=== PATIENT | female | born 1995 | race Caucasian/White ===

== ENCOUNTER 2020-12-21 08:55 | Emergency (ER) | payer OTHER, SELFPAY ==
--- NOTE | ~2020-12-21 | US_ITS ---
EXAMINATION: US OB follow up DATE: 12/21/2020 10:33 INDICATION: Pelvic pain, irregular menses TECHNIQUE: Real-time ultrasound of the pelvis was performed. The interpreting radiologist was not pre sent for the study. COMPARISON: None. FINDINGS: There is a single living fetus in transverse lie. The placenta is fundal. There is a 1.4 cm hypoechoic area of the placenta without internal vascularity, possibly venous sheppard or hematoma. Feta l cardiac activity and movement are noted. heart rate is 157 beats per minute (bpm). The amniotic fluid index is subjectively normal. The left ovary measures 2.9 x 2.1 cm. There is normal va scular flow in the left ovary. The right ovary is not visualized however no right adnexal abnormality is seen. The following biometric data were obtained: Biparietal diameter (BPD): 4.0 cm; head circumference (HC): 14.8 cm; abdominal circumference (AC): 12 .7 cm; femur length (FL): 2.4 cm. These measurements are concordant. Estimated weight is 212 g +/- 31 g. As single measurements, these parameters are each equal to the following estimated gestational ages w ith ranges of +/- 2 standard deviations: BPD: 18 weeks 3 days ( 1 weeks 5 days). HC: 18 weeks 0 days ( 1 weeks 1 days). AC: 18 weeks 2 days ( 2 weeks 0 days). FL: 17 weeks 2 days ( 1 weeks 3 days). estimated gestational age based solely on measurements from this exam is 18 weeks 0 days +/- 1 weeks 2 days. IMPRESSION: 1. Single living fetus in transverse lie. 2. estimated gestational age based solely on measurements from this exam is 18 weeks 0 days +/- 1 weeks 2 days with an estimated delivery date of 05/24/2021. Reviewed, dictated and finalized at location B. IMPRESSION: 1. Single living fetus in transverse lie. 2. estimated gestational age based solely on measurements from this exam is 18 weeks 0 days +/- 1 weeks 2 days with an estimated delivery date of 2020.
[2020-12-21 09:30] VITALS: BP 143/100; PULSE 100; RESP 20; TEMP 36.6; O2SAT 100
[2020-12-21] MEDS: ACETAMINOPHEN 325 MG TABLET 650 MG PO (09:41)
[2020-12-21] MEDS: ONDANSETRON HCL ODT 4 MG TABLET PO (09:42)
[2020-12-21 09:46] LABS: Basophils Absolute Auto 0.06 K/mm3 (0.00-0.10); Basophils Percent Auto 0.4 % (0.0-1.0); Eosinophils Absolute Auto 0.55 K/mm3 (0.02-0.50); Eosinophils Percent Auto 3.5 % (1.0-6.0); Hematocrit 33.7 % (35.0-49.0); Hemoglobin 11.5 g/dL (12.0-15.0); Immature Granulocyte Absolute 0.08 K/mm3 (0.00-0.00); Immature Granulocyte Percent A 0.5 % (0.0-0.0); Lymphocytes Absolute Auto 2.71 K/mm3 (1.10-4.50); Lymphocytes Percent Auto 17.3 % (18.0-42.0); Mean Corpuscular HGB Conc 34.1 g/dL (32.0-36.0); Mean Corpuscular Hemoglobin 30.2 pg (27.0-31.0); Mean Corpuscular Volume 88.5 fL (78.0-102.0); Mean Platelet Volume 10.4 fl (9.2-11.8); Monocytes Absolute Auto 1.12 K/mm3 (0.10-0.90); Monocytes Percent Auto 7.1 % (2.0-11.0); Neutrophils Absolute Auto 11.2 K/mm3 (1.7-7.2); Neutrophils Percent Auto 71.2 % (50.0-70.0); Platelet Count Result 258 K/mm3 (150-420); Red Blood Count 3.81 M/mm3 (4.20-5.40); Red Cell Distribution Width 12.8 % (11.6-14.4); White Blood Count 15.7 K/mm3 (4.8-10.8)
[2020-12-21 09:47] LABS: Appearance Urine Cloudy (Clear); Bilirubin Urine Negative (Negative); Color Urine Light Yellow (Yellow); Glucose Urine UA Negative (Negative); Ketones Urine Negative (Negative); Leukocyte Esterase Ur 1+ LEU/UL (Negative); Nitrate Urine Positive (Negative); Protein Urine Negative (Negative); Urobilinogen Urine 0.2 mg/dL (0.2-1.0)
[2020-12-21 09:55] LABS: Add Urine Microscopic? YES; Bacteria Urine 4+ /hpf; Blood Urine Trace-lysed (Negative); Squamous Epithelial Cell Urine Moderate /hpf (Few); WBC Urine 51-75 /hpf (0-3)
[2020-12-21 09:56] LABS: Pregnancy On Board Control Positive; Urine Pregnancy Test Positive
[2020-12-21 10:05] LABS: Alanine Aminotransferase 20 U/L (14-59); Albumin Level 3.2 g/dL (3.4-5.0); Alkaline Phosphatase 37 U/L (46-116); Anion Gap 11 mmol/L (8-16); Aspartate Amino Transferase 14 U/L (15-37); Bilirubin,Total 0.3 mg/dL (0.00-1.00); Blood Urea Nitrogen 7 mg/dL (7-18); Calcium 8.4 mg/dL (8.5-10.1); Carbon Dioxide 25 mmol/L (21-32); Chloride 103 mmol/L (98-108); Estimated CRCL calculation 105 ml/min; Estimated Glomerular Filt Rate > 60; Glucose 53 mg/dL (70-99); Lipase 56 U/L (73-393); Osmolality Calculated 283 mOsm/kg (285-295); Potassium 2.9 mmol/L (3.5-5.1); Sodium 139 mmol/L (136-145); Total Protein 6.5 g/dL (6.4-8.2)
[2020-12-21] MEDS: POTASSIUM CHLORIDE 20 MEQ TABLET 40 MEQ PO (10:40)
[2020-12-21] MEDS: SODIUM CHLORIDE 0.9% IV 1,000 ML 999 ML IV CONT (10:52)
[2020-12-21] MEDS: KCL 20 MEQ/SW 100 ML 100 ML 50 MEQ IVPB (10:52)
--- NOTE | 2020-12-21 11:55 | PC.NURSE ---
HIV testing offered, mom declined, refusal signed.
--- NOTE | 2020-12-21 12:57 | ED.ABDPAIN ---
HPI - Abdominal Pain General Chief Complaint: Abdominal Pain Stated Complaint: ABD PAIN Time Seen by Provider: 12/21/20 09:32 Source: patient and RN notes reviewed Mode of arrival: ambulatory Limitations: no limitations History of Present Illness MD elicited complaint: abdominal pain and other (Pt may be ) Onset (ago): day(s) (1) Pain Consistency: colicky Location: suprapubic Severity: mild Pain scale (0-10): 3 Quality: cramping and dull Radiation: none Migration to: no migration Exacerbating factors: nothing Relieving factors: nothing Associated symptoms: nausea Related Data Patient : Yes Allergies Allergy/AdvReac Type Severity Reaction Status Date / Time nickel Allergy Mild rash Verified 11/16/18 11:02 Review of Systems Review of Systems: All systems reviewed & are unremarkable except as noted in HPI and below Constitutional: Constitutional: Reports as per HPI and Reports no additional constitutional complaints Eyes: Eyes: Reports as per HPI and Reports no additional eye complaints ENT: Reports system reviewed and no additional complaints, except as documented and Reports as per HPI Cardiovascular: Cardiovascular: Reports as per HPI and Reports no additional cardiovascular complaints Respiratory: Respiratory: Reports as per HPI and Reports no additional respiratory complaints Gastrointestinal: Gastrointestinal: Reports as per HPI, Reports no additional gastrointestinal complaints, Reports abdominal pain and Reports nausea Genitourinary: Genitourinary: Reports no additional female genitourinary complaints, Reports as per HPI and Reports nocturia Musculoskeletal: Musculoskeletal: Reports no additional musculoskeletal complaints and Reports as per HPI Integumentary/Breasts: Skin/Breast: Reports system reviewed and no additional complaints, except as docu and Reports as per HPI Neurologic: Reports system reviewed and no additional complaints, except as documented and Reports as per HPI Psychiatric: Psychiatric: Reports no additional psychiatric complaints and Reports as per HPI Endocrine: Endocrine: Reports no additional endocrine complaints and Reports as per HPI Hematologic/Lymphatic: Hematologic/Lymphatic: Reports no additional hematologic/lymphatic complaints and Reports as per HPI Allergic/Immunologic: Allergic/Immunologic: Reports no additional allergic/immunologic complaints and Reports as per HPI PMFSH Past Medical History Medical History Hypokalemia Exam Const: General: healthy appearing, no acute distress and alert Nutritional Appearance: well nourished Orientation/consciousness: patient oriented x3 Limitations: no limitations HENMT: Head: normal to inspection Ears: external ears normal and TM's normal bilaterally General nose exam: Normal external nose present and Normal nares present Mouth: Yes lip normal and Yes moist mucous membranes Teeth and gingiva: dentition normal Eyes: Conjunctivae: conjunctivae normal Pupils: Equal, round and reactive pupils present EOM: EOMs intact bilaterally Neck: Neck: normal visual inspection and no lymphadenopathy Chest: Chest palpation & inspection: normal inspection of the chest Resp: Effort & Inspection: normal respiratory effort Auscultation: clear to auscultation bilaterally Cardio: Rate: regular rate Rhythm: regular rhythm GI: GI Palp: Yes Soft to palpation Percussion: Yes normal to percussion Auscultation: normal bowel sounds Other: no acute tenderness, gravid uterus 20 weeks size? : General: Yes bladder normal to palpation and Yes no CVA tenderness Back/Spine/Pelvis: Back: no CVA tenderness Skin: General skin exam: normal color Rashes: no rashes Neuro: General: patient oriented x3, moves all extremities and no focal motor deficits Extrem: General: normal to inspection and no pedal edema Psych: Appearance: grossly normal and well kempt Mental St
[2020-12-21 13:18] VITALS: BP 120/74; PULSE 89; RESP 20; TEMP 36.6; O2SAT 100
== END 2020-12-21 13:24 | disposition home or self-care (01) ==
PROVIDERS: Emergency Provider Emergency Medicine
DX: E87.6 Hypokalemia (principal); Z3A.18 18 weeks gestation of pregnancy; N30.00 Acute cystitis without hematuria
CPT/HCPCS: 36415; 76816; 80053; 81001; 81025; 83690; 84702; 85025; 87077; 87086; 87088; 87186; 96365; 96366; 96367; 99283; 99284; A9270; J0696; J3480; J7030

== ENCOUNTER 2021-01-20 09:06 | Outpatient (CLI) | payer OTHER, SELFPAY ==
[2021-01-20 09:54] LABS: Alanine Aminotransferase 20 U/L (14-59); Albumin Level 3.1 g/dL (3.4-5.0); Alkaline Phosphatase 48 U/L (46-116); Anion Gap 14 mmol/L (8-16); Aspartate Amino Transferase 12 U/L (15-37); Bilirubin,Total 0.2 mg/dL (0.00-1.00); Blood Urea Nitrogen 6 mg/dL (7-18); Calcium 9.2 mg/dL (8.5-10.1); Carbon Dioxide 24 mmol/L (21-32); Chloride 104 mmol/L (98-108); Estimated Glomerular Filt Rate > 60; Glucose 106 mg/dL (70-99); Lactate Dehydrogenase 143 U/L (81-234); Osmolality Calculated 291 mOsm/kg (285-295); Potassium 3.2 mmol/L (3.5-5.1); Sodium 142 mmol/L (136-145); Total Protein 6.8 g/dL (6.4-8.2); Uric Acid 2.4 mg/dL (2.6-6.0)
[2021-01-20 10:35] LABS: HIV 1 P24 AG Negative (Negative); HIV 1/2 AB Negative (Negative)
[2021-01-20 10:47] LABS: Thyroid Stimulating Hormone 1.45 uIU/mL (0.36-3.74)
[2021-01-23 12:48] LABS: Vitamin D 25 Hydroxy 22 ng/mL (30-100)
[2021-01-24 11:38] LABS: RPR Screen Non-Reactive (Non-Reactive)
[2021-01-25 03:33] LABS: Hepatitis B Surface Antigen Nonreactive (Nonreactive); Hepatitis C Signal to Cutoff 0.01 ratio (<1.00); Hepatitis C Virus Antibody Nonreactive (Nonreactive)
[2021-01-25 17:59] LABS: Hematocrit 34.1 % (35.0-45.0); MCH 30.7 pg (27.0-33.0); MCV 95.4 fL (80.0-100.0); RDW 14.2 % (11.0-15.0); Red Blood Cell Count 3.57 Mill/uL (3.80-5.10)
[2021-01-25 18:52] LABS: Rubella IgG Antibody 1.16 Index
== END 2021-01-20 09:07 | disposition home or self-care (01) ==
LOC: CHSLAB 09:08
PROVIDERS: PCP Student in an Organized Health Care Education/Training Program; Visit Provider Student in an Organized Health Care Education/Training Program
DX: Z34.90 Encounter for supervision of normal pregnancy, unspecified, unspecified trimester (principal); I10 Essential (primary) hypertension
CPT/HCPCS: 36415; 80053; 82306; 83021; 83615; 84443; 84550; 86592; 86703; 86762; 86787; 86850; 86900; 86901

== ENCOUNTER 2021-02-02 20:31 | Emergency (ER) | payer OTHER, SELFPAY ==
[2021-02-02 20:45] VITALS: BP 130/76; PULSE 107; RESP 18; TEMP 36.8; O2SAT 99
--- NOTE | 2021-02-02 21:00 | PC.NURSE ---
HIV refusal signed per mom, reports having done at OB Dr office.
--- NOTE | 2021-02-02 21:00 | ED.GENADULT ---
HPI - General Adult General Chief complaint: Unspecified Stated complaint: body pain Source: patient Mode of arrival: ambulatory Limitations: no limitations History of Present Illness HPI narrative: Danae is a 25F with a PMH of hypertension, history of nicotine dependence that is 5 months that presented to the ED with body aches and chills. This morning she started having aches in her low back that then went down her legs and to her whole body. She then had chills and has a lot of fatigue. She denies CP, SOB, nausea, vomiting, diarrhea and dysuria. Related Data Home Medications Medication Instructions Recorded Confirmed docosahexaenoic acid 200 mg capsule 200 mg PO DAILY 12/30/20 02/02/21 Allergies Allergy/AdvReac Type Severity Reaction Status Date / Time nickel Allergy Mild rash, hives Verified 01/20/21 11:46 Review of Systems Constitutional: Constitutional: Reports body ache(s), Reports chills and Reports malaise Eyes: Eyes: Reports no additional eye complaints ENT: Reports system reviewed and no additional complaints, except as documented Cardiovascular: Cardiovascular: Reports no additional cardiovascular complaints Respiratory: Respiratory: Reports no additional respiratory complaints Gastrointestinal: Gastrointestinal: Reports no additional gastrointestinal complaints Genitourinary: Genitourinary: Reports no additional female genitourinary complaints Musculoskeletal: Musculoskeletal: Reports as per HPI Integumentary/Breasts: Skin/Breast: Reports system reviewed and no additional complaints, except as docu Neurologic: Reports system reviewed and no additional complaints, except as documented Psychiatric: Psychiatric: Reports no additional psychiatric complaints Endocrine: Endocrine: Reports no additional endocrine complaints Hematologic/Lymphatic: Hematologic/Lymphatic: Reports no additional hematologic/lymphatic complaints Allergic/Immunologic: Allergic/Immunologic: Reports no additional allergic/immunologic complaints COUNTS INCLUDE 234 BEDS AT THE [facility] Past Medical History Medical History Hypokalemia Surgical History Surgical History History of appendectomy History of placement of ear tubes Previous section x1 Family History Family History Father Alcoholism Mother COPD (chronic obstructive pulmonary disease) Hypertension Depression Anxiety Grandparent Lymphoma Hypertension Anxiety Depression Cerebrovascular accident Social History Social History (Reviewed 09/01/21 @ 21:04 by CHARO Smith Smoking status: Current every day smoker Tobacco type: cigarettes Alcohol intake: former Substance use: never Exam Const: General: cooperative, healthy appearing, comfortable and no acute distress HENMT: Head: normal to inspection, normocephalic and atraumatic Eyes: General: appearance normal, both eyes and all related structures Neck: Neck: normal visual inspection Chest: Chest palpation & inspection: normal inspection of the chest Resp: Effort & Inspection: normal respiratory effort and able to speak in complete sentences Auscultation: clear to auscultation bilaterally Cardio: Rate: regular rate Rhythm: regular rhythm GI: Inspection: normal to inspection GI Palp: No abdominal tenderness Auscultation: normal bowel sounds Skin: General skin exam: normal color and no rashes or lesions noted Neuro: General: oriented to person, oriented to place and oriented to time Extrem: General: normal to inspection Psych: Appearance: grossly normal Mental Status: mental status grossly normal Speech and movement: Normal speech and movement present Affect: normal affect Attitude: cooperative Thought process: Normal thought process present Course Course Emergency Course: Her labs showed anemia wi
[2021-02-02 21:13] LABS: Basophils Absolute Auto 0.04 K/mm3 (0.00-0.10); Basophils Percent Auto 0.3 % (0.0-1.0); Eosinophils Absolute Auto 0.19 K/mm3 (0.02-0.50); Eosinophils Percent Auto 1.3 % (1.0-6.0); Hematocrit 27.1 % (35.0-49.0); Hemoglobin 9.5 g/dL (12.0-15.0); Immature Granulocyte Absolute 0.19 K/mm3 (0.00-0.00); Immature Granulocyte Percent A 1.3 % (0.0-0.0); Lymphocytes Absolute Auto 0.86 K/mm3 (1.10-4.50); Mean Corpuscular HGB Conc 35.1 g/dL (32.0-36.0); Mean Corpuscular Hemoglobin 31.1 pg (27.0-31.0); Mean Corpuscular Volume 88.9 fL (78.0-102.0); Mean Platelet Volume 10.5 fl (9.2-11.8); Monocytes Absolute Auto 1.12 K/mm3 (0.10-0.90); Monocytes Percent Auto 7.8 % (2.0-11.0); Neutrophils Absolute Auto 11.9 K/mm3 (1.7-7.2); Neutrophils Percent Auto 83.3 % (50.0-70.0); Platelet Count Result 210 K/mm3 (150-420); Red Blood Count 3.05 M/mm3 (4.20-5.40); Red Cell Distribution Width 13.2 % (11.6-14.4); White Blood Count 14.3 K/mm3 (4.8-10.8)
[2021-02-02 21:17] LABS: Appearance Urine Clear (Clear); Bilirubin Urine Negative (Negative); Color Urine Light Yellow (Yellow); Glucose Urine UA Negative (Negative); Ketones Urine 2+ (Negative); Leukocyte Esterase Ur Negative (Negative); Nitrate Urine Negative (Negative); Protein Urine Negative (Negative); Urobilinogen Urine 0.2 mg/dL (0.2-1.0)
[2021-02-02 21:23] LABS: Add Urine Microscopic? YES; Bacteria Urine 1+ /hpf; Blood Urine Trace-Intact (Negative); RBC Urine 0-2 /hpf (0-2); Squamous Epithelial Cell Urine Moderate /hpf (Few); WBC Urine 0-3 /hpf (0-3)
[2021-02-02 21:29] LABS: Alanine Aminotransferase 23 U/L (14-59); Albumin Level 2.8 g/dL (3.4-5.0); Alkaline Phosphatase 44 U/L (46-116); Anion Gap 8 mmol/L (8-16); Aspartate Amino Transferase 18 U/L (15-37); Bilirubin,Total 0.2 mg/dL (0.00-1.00); Blood Urea Nitrogen 3 mg/dL (7-18); Calcium 7.7 mg/dL (8.5-10.1); Carbon Dioxide 25 mmol/L (21-32); Chloride 101 mmol/L (98-108); Estimated CRCL calculation 152 ml/min; Estimated Glomerular Filt Rate > 60; Glucose 90 mg/dL (70-99); Osmolality Calculated 274 mOsm/kg (285-295); Potassium 2.9 mmol/L (3.5-5.1); Sodium 134 mmol/L (136-145); Total Protein 6.3 g/dL (6.4-8.2)
[2021-02-02 21:33] LABS: Influenza Control Valid (Valid); SARS-CoV-2 Ag Positive (Negative)
[2021-02-02 22:26] VITALS: BP 122/75; PULSE 100; RESP 20; TEMP 37; O2SAT 99
[2021-02-02] MEDS: POTASSIUM CHLORIDE 20 MEQ TABLET 40 MEQ PO (22:26)
== END 2021-02-02 22:34 | disposition home or self-care (01) ==
PROVIDERS: Emergency Provider Family Medicine; PCP Student in an Organized Health Care Education/Training Program
DX: O98.512 Other viral diseases complicating pregnancy, second trimester (principal); U07.1 COVID-19; E87.6 Hypokalemia; D64.9 Anemia, unspecified; F17.200 Nicotine dependence, unspecified, uncomplicated
CPT/HCPCS: 80053; 81001; 85025; 87426; 87804; 99282; 99283; A9270; C9803

== ENCOUNTER 2021-03-21 09:11 | Outpatient (CLI) | payer OTHER, SELFPAY ==
[2021-03-21 10:47] LABS: Hematocrit 31.7 % (35.0-49.0); Mean Corpuscular HGB Conc 34.7 g/dL (32.0-36.0); Mean Corpuscular Hemoglobin 31.3 pg (27.0-31.0); Mean Corpuscular Volume 90.3 fL (78.0-102.0); Mean Platelet Volume 10.9 fl (9.2-11.8); Platelet Count Result 349 K/mm3 (150-420); Red Blood Count 3.51 M/mm3 (4.20-5.40); Red Cell Distribution Width 13.3 % (11.6-14.4)
[2021-03-21 10:59] LABS: White Blood Count 22.9 K/mm3 (4.8-10.8)
[2021-03-21 11:12] LABS: Band Neutrophils Percent 1 % (0-6); Eosinophils Absolute Manual 0.45 K/mm3 (0.02-0.5); Eosinophils Percent Manual 2 % (1-6); Lymphocytes Absolute Manual 3.43 K/mm3 (1.1-4.5); Lymphocytes Percent Manual 15 % (18-44); Monocytes Absolute Manual 2.29 K/mm3 (0.1-0.90); Monocytes Percent Manual 10 % (3-9); Neutrophils Absolute Manual 16.71 K/mm3 (1.7-7.2); Neutrophils Percent Manual 72 % (46-73); Platelet Estimate Adequate (Adequate); Total Cells Counted 100
[2021-03-21 11:23] LABS: Glucose 1 Hour PP 50gm Dose 91 mg/dL (70-130)
[2021-03-21 11:35] LABS: HIV 1 P24 AG Negative (Negative); HIV 1/2 AB Negative (Negative)
[2021-03-23 15:47] LABS: RPR Screen Non-Reactive (Non-Reactive)
== END 2021-03-21 09:12 | disposition home or self-care (01) ==
LOC: CHSLAB 09:13
PROVIDERS: Visit Provider Student in an Organized Health Care Education/Training Program
DX: Z34.90 Encounter for supervision of normal pregnancy, unspecified, unspecified trimester (principal); I10 Essential (primary) hypertension
CPT/HCPCS: 36415; 82947; 85025; 86592; 86703

== ENCOUNTER 2021-05-02 14:46 | Inpatient (IN) | payer OTHER, SELFPAY ==
[2021-05-02] VITALS (55 sets, daily range): BP systolic 117–157; BP diastolic 88–106; PULSE 59–125; RESP 14–28; TEMP 36.2–37.3; O2SAT 94–100; BMI 27.5
--- NOTE | 2021-05-02 14:46 | LDADM ---
This patient, Danae Liu, was admitted to Labor/Delivery/Recovery 120 on 05/02/21 at 14:46. Plans for section, pain management and were discussed with patient. Patient/family oriented to hospital policies and general routines including ID bracelet, bed and alarms, visiting hours, pain management, procedures, bathroom and other care routines, personal items, smoking policy, room service/diet and guest tray routines, security routines, and visiting hours. Patient/Family are encouraged to report perceived risks to care and to ask questions if they do not understand what they are told or what they should do. See OBIX for further documentation.
--- NOTE | 2021-05-02 16:11 | PM.IMHP ---
H&P: HPI History of Present Illness Date/Time: 05/02/21 16:11 Patient is a 25-year-old . LMP uncertain in either August or September 2020. Patient is dated by an US on 12/21/20 at 18w gestation. She is currently 36w6d gestation with an MARIO ALBERTO 05/24/21. Patient was sent from [facility] for nonreassuring heart tracing. Late decelerations were noted on monitoring. Patient has a history of chronic hypertension and has been noncompliant during this with regards to missed office appointments and missed MFM appointments. In light of nonreassuring heart tracing today as well as history of noncompliance, recommendation made to proceed with delivery per [facility]. Fetus in breech presentation today. Patient has a history of C/S x 1 and will be for a repeat section. In general, she reports feeling well today. Denies any headache, chest pain, SOB, N/V, visual disturbances, or RUQ tenderness. Denies any vaginal bleeding or leakage of fluid. Reports occ contractions. Reports good movement. Chief Complaint: IUP at 36w6d gestation Nonreassuring heart tracing Previous C/S x 1 Breech presentation Review of Systems Review of Systems: All systems reviewed & are unremarkable except as noted in HPI and below Constitutional: Constitutional: Reports as per HPI, Reports no additional constitutional complaints, Denies chills, Denies fever(s), Denies headache(s) and Denies night sweats Eyes: Eyes: Reports as per HPI and Reports no additional eye complaints ENT: Reports system reviewed and no additional complaints, except as documented, Reports as per HPI, Reports Normal hearing present and Denies headache(s) Cardiovascular: Cardiovascular: Reports as per HPI, Reports no additional cardiovascular complaints, Denies chest pain and Denies dyspnea Respiratory: Respiratory: Reports as per HPI, Reports no additional respiratory complaints, Denies cough and Denies dyspnea Gastrointestinal: Gastrointestinal: Reports as per HPI, Reports no additional gastrointestinal complaints, Denies abdominal pain, Denies change in bowel habits, Denies change in stool character, Denies nausea and Denies vomiting Genitourinary: Genitourinary: Reports no additional female genitourinary complaints, Reports as per HPI, Denies abnormal vaginal bleeding, Denies genital lesions, Denies hot flashes, Denies dyspareunia, Denies pelvic pain, Denies sexual dysfunction, Denies urinary incontinence, Denies vaginal discharge, Denies vaginal dryness and Denies vaginal odor Musculoskeletal: Musculoskeletal: Reports no additional musculoskeletal complaints and Reports as per HPI Integumentary/Breasts: Skin/Breast: Reports system reviewed and no additional complaints, except as docu, Reports as per HPI, Denies breast pain and Denies nipple discharge Neurologic: Reports system reviewed and no additional complaints, except as documented, Reports as per HPI, Reports Normal hearing present and Denies headache(s) Psychiatric: Psychiatric: Reports no additional psychiatric complaints, Reports as per HPI, Denies anxiety and Denies depression Endocrine: Endocrine: Reports no additional endocrine complaints and Reports as per HPI Hematologic/Lymphatic: Hematologic/Lymphatic: Reports no additional hematologic/lymphatic complaints and Reports as per HPI Allergic/Immunologic: Allergic/Immunologic: Reports no additional allergic/immunologic complaints and Reports as per HPI PMFSH Past Medical History Medical History Chronic hypertension COVID-19 affecting in second trimester Hypokalemia Surgical History Surgical History History of appendectomy History of placement of ear tubes Previous section x1 Family History Family History Father Alcoholism Mother COPD (chronic obstructive pulmonary disease) Hypert
[2021-05-02 16:19] LABS: Basophils Absolute Auto 0.1 K/mm3 (0.0-0.1); Basophils Percent Auto 0.3 % (0.2-1.2); Eosinophils Absolute Auto 0.3 K/mm3 (0-0.3); Eosinophils Percent Auto 1.3 % (0-4.4); Hemoglobin 11.3 g/dL (12.0-15.0); Immature Granulocyte Absolute 0.32 K/mm3 (0.00-0.031); Immature Granulocyte Percent A 1.5 % (0-0.5); Lymphocytes Percent Auto 17.9 % (18.3-44.2); Mean Corpuscular HGB Conc 34.2 g/dl (32-36); Mean Corpuscular Hemoglobin 30.5 pg (26-34); Mean Corpuscular Volume 88.9 fl (80-100); Mean Platelet Volume 11.6 fl (7.4-10.4); Monocytes Percent Auto 9.7 % (2.6-8.5); Neutrophils Absolute Auto 14.3 K/mm3 (1.3-6.7); Neutrophils Percent Auto 69.3 % (45.5-73.1); Nucleated Red Blood Cells Perc 0.1 % (0.0-0.2); Platelet Count Result 333 k/mm3 (150-375); Red Blood Count 3.71 M/mm3 (4.2-5.4); Red Cell Distribution Width 13.3 % (11.5-14.5); White Blood Count 20.7 K/mm3 (4.5-10.0)
[2021-05-02 16:28] LABS: Add Urine Microscopic? YES; Amorphous Sediment Urine Few; Appearance Urine Cloudy (Clear); Bacteria Urine Trace /hpf; Bilirubin Urine Negative (Negative); Blood Urine Negative (Negative); Color Urine Yellow (Yellow); Glucose Urine UA Negative (Negative); Ketones Urine Negative (Negative); Leukocyte Esterase Ur 2+ LEU/UL (NEGATIVE); Nitrate Urine Negative (Negative); Protein Urine Negative (Negative); RBC Urine 0-2 /hpf (0-2); Specific Grav Ur 1.006 (1.001-1.035); Squamous Epithelial Cell Urine Many /hpf (Few); Urobilinogen Urine Negative mg/dL (<2.0)
[2021-05-02 16:32] LABS: Alanine Aminotransferase 13 U/L (4-35); Albumin Level 3.1 g/dL (3.5-5.1); Alkaline Phosphatase 155 U/L (38-126); Anion Gap 6 mmol/L (8-16); Aspartate Amino Transferase 24 U/L (14-36); Bilirubin,Total 0.3 mg/dL (0.2-1.3); Blood Urea Nitrogen 6 mg/dL (7-17); Calcium 8.8 mg/dL (8.4-10.2); Carbon Dioxide 20 mmol/L (22-30); Chloride 108 mmol/L (98-107); Estimated Glomerular Filt Rate > 60; Glucose 79 mg/dL (65-110); Potassium 3.5 mmol/L (3.4-5.0); Sodium 134 mmol/L (137-145); Uric Acid 3.7 mg/dL (2.5-7.5)
[2021-05-02 16:47] LABS: Amphetamine Screen Urine Positive (Negative); Barbiturate Screen Urine Negative (Negative); Benzodiazepines Screen Urine Negative (Negative); Cannabinoid Screen Urine Positive (Negative); Cocaine Screen Urine Negative (Negative); Methadone Screen Urine Negative (Negative); Opiate Screen Urine Negative (Negative); Phencyclidine Screen Urine Negative (Negative)
--- NOTE | 2021-05-02 16:48 | WPDANESEPPF ---
Anes - Initial Pre Proc Eval Date/Time: 05/02/21 16:48 Surgeon: Franchesca Moreira MD Pre Op Diagnosis: Decel in office Patient Data Age: 26 Gender: F Height: Weight: Last Vital Signs Pulse 125 H 05/02/21 16:46 BP 128/106 H 05/02/21 16:46 Allergies Allergy/AdvReac Type Severity Reaction Status Date / Time nickel Allergy Mild rash, hives Verified 04/12/21 14:52 Home Medications Medication Instructions Recorded Confirmed Type ondansetron 4 mg PO Q8H PRN #14 tablet 12/21/20 02/02/21 Rx potassium chloride 20 meq PO BID #20 tablet 12/21/20 02/02/21 Rx docosahexaenoic acid 200 mg capsule 200 mg PO DAILY 12/30/20 02/02/21 History multivitamin no.47-iron fum 27 1 cap PO .COMPLEX #30 cap 12/31/20 02/02/21 Rx mg-folate no.1 1 mg-dha 300 mg capsule ferrous sulfate 325 mg (65 mg 325 mg PO DAILY #90 tablet 03/17/21 03/17/21 Rx iron) tablet amoxicillin 875 mg-potassium 1 tablet PO BID #14 tablet 04/12/21 04/12/21 Rx clavulanate 125 mg tablet Laboratory Tests 05/02/21 05/02/21 05/02/21 16:00 16:00 16:00 WBC 20.7 K/mm3 H K/mm3 (4.5-10.0) RBC 3.71 M/mm3 L M/mm3 (4.2-5.4) Hgb 11.3 g/dL L g/dL (12.0-15.0) Hct 33.0 % L % (37.0-47.0) MCV 88.9 fl fl (80-100) MCH 30.5 pg pg (26-34) MCHC 34.2 g/dl g/dl (32-36) RDW 13.3 % % (11.5-14.5) Plt Count 333 k/mm3 k/mm3 (150-375) MPV 11.6 fl H fl (7.4-10.4) Immature Gran % (Auto) 1.5 % H % (0-0.5) Neut % (Auto) 69.3 % % (45.5-73.1) Lymph % (Auto) 17.9 % L % (18.3-44.2) [place] % (Auto) 9.7 % H % (2.6-8.5) Eos % (Auto) 1.3 % % (0-4.4) Baso % (Auto) 0.3 % % (0.2-1.2) Lymph # (Auto) 3.70 K/mm3 H K/mm3 (0.9-3.2) [place] # (Auto) 2.0 K/mm3 H K/mm3 (0.1-0.6) Eos # (Auto) 0.3 K/mm3 K/mm3 (0-0.3) Baso # (Auto) 0.1 K/mm3 K/mm3 (0.0-0.1) Abs Immat Gran (auto) 0.32 K/mm3 H K/mm3 (0.00-0.031) Absolute Neuts (auto) 14.3 K/mm3 H K/mm3 (1.3-6.7) Absolute Nucleated RBC 0.0 K/mm3 K/mm3 (0.0-0.012) Nucleated RBC % 0.1 % % (0.0-0.2) Sodium 134 mmol/L L mmol/L (137-145) Potassium 3.5 mmol/L mmol/L (3.4-5.0) Chloride 108 mmol/L H mmol/L (98-107) Carbon Dioxide 20 mmol/L L mmol/L (22-30) Anion Gap 6 mmol/L L mmol/L (8-16) BUN 6 mg/dL L mg/dL (7-17) Creatinine 0.40 mg/dL L mg/dL (0.7-1.0) Estim Creat Clear Calc Not Reportable Estimated GFR > 60 (59 - ) Glucose 79 mg/dL mg/dL (65-110) Uric Acid 3.7 mg/dL mg/dL (2.5-7.5) Calcium 8.8 mg/dL mg/dL (8.4-10.2) Total Bilirubin 0.3 mg/dL mg/dL (0.2-1.3) AST 24 U/L U/L (14-36) ALT 13 U/L U/L (4-35) Alkaline Phosphatase 155 U/L H U/L (38-126) Total Protein 6.0 g/dL L g/dL (6.3-8.2) Albumin 3.1 g/dL L g/dL (3.5-5.1) Urine Color Yellow (Yellow) Urine Appearance Cloudy H (Clear) Urine pH 7.0 (5.0-9.0) Ur Specific [place] 1.006 (1.001-1.035) Urine Protein Negative mg/dL mg/dL (Negative) Urine Glucose (UA) Negative mg/dL mg/dL (Negative) Urine Ketones Negative mg/dL mg/dL (Negative) Ur Blood (Man) Negative (Negative) Urine Nitrate Negative (Negative) Urine Bilirubin Negative (Negative) Urine Urobilinogen Negative mg/dL mg/dL (<2.0) Ur Leukocyte Esterase 2+ FRANCISCO JAVIER/UL H FRANCISCO JAVIER/UL (NEGATIVE) Urine RBC 0-2 /hpf /hpf (0-2) Urine WBC 7-9 /hpf H /hpf (0-3) Ur Squamous Epith Cells Many /hpf H /hpf (Few) Amorphous Sediment Few H (None) Urine Bacteria Trace /hpf /hpf Urine O
[2021-05-02] MEDS: LACTATED RINGERS 1,000 ML 125 ML IV CONT ×2 (16:53→17:44)
--- NOTE | 2021-05-02 17:38 | WPDHPUPDATE1 ---
History and Physical Update Update Date/Time: 05/02/21 17:38 History and Physical has been reviewed, including an updated exam of the patient. There are NO changes in the patient's condition. Risks, benefits, and alternatives have been discussed and questions answered. Patient agrees to proceed with procedure.
--- NOTE | 2021-05-02 19:17 | W.PM.PROC2 ---
Procedure Note - Detailed Date of Procedure 05/02/21 Pre-op Diagnosis Intrauterine at 36w6d gestation Nonreassuring heart tracing Previous section x 1 Breech presentation Post-op Diagnosis same Procedure Performed Repeat low transverse section via Pfannenstiel Surgeon Franchesca Moreira MD Lumber Mover Crystal Nascimento Anesthesia spinal Findings Live female infant in miguel breech presentation, apgars 8/9, weighing 6 lbs. 3 oz., clear amniotic fluid, normal appearing uterus, ovaries, and fallopian tubes bilaterally Description of Procedure The patient was taken to the operating room, where she self-transferred to the operating room table. Spinal anesthesia was administered. The patient was placed in dorsal supine position with a leftward tilt. She was prepped and draped in the usual sterile fashion. Spinal anesthesia was tested and found to be adequate. A Pfannenstiel skin incision was made with a scalpel and carried through to underlying layer of fascia with the Bovie. The fascia was incised in the midline and the incision was extended laterally with the use of forceps and Xiong scissors. Moderate scar tissue was noted. The inferior aspect of the fascial incision was grasped with Matheus clamps, elevated, and the underlying rectus muscle were dissected off with Xiong scissors. Attention was then turned to the superior aspect of the fascial incision, which in a similar manner, was grasped with Matheus clamps, elevated, and the underlying rectus muscles were also dissected off with Xiong scissors. The rectus muscles were in the midline and the peritoneal cavity was entered sharply. This incision was extended superiorly and inferiorly with good visualization of the bladder and care was taken to avoid blood vessels. A bladder blade was inserted. The vesicouterine peritoneum was identified and incised sharply with Metzenbaum scissors. This incision was extended laterally with Metzenbaum scissors and a bladder flap was created digitally. The bladder blade was replaced. A low-transverse uterine incision was made with a scalpel. This incision was extended laterally with bandage scissors. Clear amniotic fluid was noted. The 's buttocks were grasped and guided to the level of the uterine incision. The 's buttocks were delivered easily without difficulty with gentle fundal pressure. The infant was visualized voiding. Infant was found in miguel breech presentation. The infant was rotated to the right and the right lower extremity was flexed and delivered. The infant was then rotated to the left and the left lower extremity was also flexed and delivered. The was wrapped with a sterile blue towel and grasped at the level of the iliac crests and guided through incision to level of scapulae. The was rotated to the right and the right arm was flexed and delivered. Similarly, the was rotated to the left and the left arm was also flexed and delivered. The 's head was flexed and easily delivered through incision atraumatically and without difficulty. Nose and mouth were suctioned with bulb suction. The cord was clamped and cut and the was handed off to awaiting nursing staff. A segment of cord was collected for cord gases. Cord blood was also collected. The placenta was then delivered manually with gentle uterine massage. Uterus was exteriorized and cleared of all clots and debris. The uterine incision was reapproximated with 0 Vicryl in a running, locked fashion. A second imbricating layer using 0 Monocryl performed. An area of bleeding inferior to incision was noted. This area was made hemostatic with a figure of eight suture using 0 Monocryl. Excellent hemostasis was noted. On inspection, the uterus, ovaries, and fallopian tubes appeared normal. The uterus was replaced into the abdominal cavity. The gutters were cleared of all clots and debris. The uterine incision was inspected again and noted to be hemosta
--- NOTE | 2021-05-02 19:35 | PM.OBPRVD ---
OB - Delivery Note Procedure Delivery date: 05/02/21 Procedure: Procedures Operation Date: 05/02/21 18:00 Actual Procedure Side Surgeon p Section Not Applicable Franchesca Moreira MD events: Previous Delivery monitor: external FHT and external uterine Route of delivery: Specimen: Yes (placenta and cord) Quantitative Blood Loss (ml): 950 Anesthesia type: Spinal Disposition: PACU Complications: No immediate complications [place] Baby Date of : 05/02/21 Time of : 18:26 Weeks of gestation at delivery: 36 (36.6) Infant gender: Female Weight (pounds): 6 Weight (ounces): 3 presentation: miguel breech Placenta delivery description: Manual Removal cord vessel description: 3 Vessels and Clamped/Cut score one minute: 8 score five minutes: 9
[2021-05-02] MEDS: OXYTOCIN 30 UNITS/NS 500 ML 30 UNITS/500 ML BAG 125 UNITS IV CONT (19:37)
[2021-05-02] MEDS: ONDANSETRON INJ 4 MG/2 ML VIAL IV PUSH (20:46)
--- NOTE | 2021-05-02 20:46 | PC.NURSE ---
pt increased complaint of nausea. Order received from Christopher Ram CRNA, 4mg zofran and 25 mg Bendryl IV.
[2021-05-02] MEDS: diphenhydrAMINE HCl INJ 50 MG/ML VIAL 25 MG IV PUSH (21:15)
--- NOTE | 2021-05-02 21:44 | OBPPTRN ---
Patient transferred to post room # [id number] via bed. Support person present. Oriented to unit, room, information board, rooming in, admission packet and security measures. Patient verbalizes understanding.
[2021-05-03 04:30] VITALS: BP 116/82; PULSE 84; RESP 16; TEMP 36.6; O2SAT 98
[2021-05-03] MEDS: IBUPROFEN 600 MG TABLET PO ×3 (04:35→19:33)
[2021-05-03] MEDS: HYDROcodone/acetaminophen (*CRX) 10-325 MG TABLET 1 TAB PO ×2 (04:36→09:10)
[2021-05-03 04:55] LABS: Basophils Absolute Auto 0.1 K/mm3 (0.0-0.1); Basophils Percent Auto 0.4 % (0.2-1.2); Eosinophils Absolute Auto 0.2 K/mm3 (0-0.3); Eosinophils Percent Auto 0.8 % (0-4.4); Hematocrit 31.8 % (37.0-47.0); Hemoglobin 10.8 g/dL (12.0-15.0); Lymphocytes Absolute Auto 2.87 K/mm3 (0.9-3.2); Lymphocytes Percent Auto 9.7 % (18.3-44.2); Mean Corpuscular Hemoglobin 30.9 pg (26-34); Mean Corpuscular Volume 91.1 fl (80-100); Mean Platelet Volume 11.5 fl (7.4-10.4); Monocytes Percent Auto 6.8 % (2.6-8.5); Neutrophils Absolute Auto 24.2 K/mm3 (1.3-6.7); Neutrophils Percent Auto 81.3 % (45.5-73.1); Platelet Count Result 292 k/mm3 (150-375); Red Blood Count 3.49 M/mm3 (4.2-5.4); Red Cell Distribution Width 13.3 % (11.5-14.5); White Blood Count 29.7 K/mm3 (4.5-10.0)
--- NOTE | 2021-05-03 07:11 | WPDANLDNPN2 ---
Anes-Prog Note L&D-Neuraxial Date/Time: 05/03/21 07:11 Neuraxial medications: intrathecal PF morphine Opiod-related complaints: none Patient feedback: Patient satisfied with post-operative pain management.
--- NOTE | 2021-05-03 07:11 | WPDANLDPN2 ---
Anes-Prog Note L&D Date/Time: 05/03/21 07:11 Comfortable throughout: section Neuraxial method: spinal Epidural/Spinal procedure site: clean & non-tender Neuro status: Neuro function grossly intact. Cardiovascular status: normal Respiratory status: normal Airway patency: baseline Mental status: baseline Post-Op hydration status: normal Vital Signs: Last Vital Signs Temp 36.6 C 05/03/21 04:30 Pulse 84 05/03/21 04:30 Resp 16 05/03/21 04:30 BP 116/82 05/03/21 04:30 Pulse Ox 98 05/03/21 04:30 Pain score (VAS): 0 I/O: Intake & Output 05/02/21 05/02/21 05/03/21 15:59 23:59 07:59 Intake Total 2500 1300 Output Total 2520 1950 Balance -20 -650 Post-procedural complaints: none Patient feedback: Patient satisfied with anesthetic care.
[2021-05-03 08:00] VITALS: BP 130/85; PULSE 80; RESP 18; TEMP 36.4
[2021-05-03 08:37] LABS: Rapid Plasma Reagin Non-Reactive (NonReactive)
[2021-05-03] MEDS: SIMETHICONE 80 MG TAB.CHEW PO ×3 (09:09→16:53)
[2021-05-03] MEDS: DOCUSATE SODIUM 100 MG CAPSULE PO ×2 (09:09→16:53)
[2021-05-03] MEDS: POLYSACCHARIDE IRON COMPLEX 150 MG CAPSULE PO (09:10)
[2021-05-03 12:01] VITALS: BP 136/89; PULSE 78; RESP 18; TEMP 36.9; O2SAT 100
[2021-05-03 12:30] VITALS: BP 136/89; PULSE 78; RESP 18; TEMP 36.9; O2SAT 100
[2021-05-03] MEDS: HYDROcodone/acetaminophen (*CRX) 5-325 MG TABLET 1 TAB PO ×3 (12:52→19:33)
--- NOTE | 2021-05-03 15:07 | PCCCNOTE ---
Addendum entered by BRADY Montez 05/06/21 16:36: DCFS worker, Roberto Carlos present at hospital today to take protective custody of baby at baby discharge. Addendum entered by BRADY Montez 05/04/21 08:16: RN indicates DCFS worker present yesterday at hospital to meet pt. DCFS to make home visit and determine return home with pt. vs. DCFS custody. DCFS to inform RN/Care Coordination of determination. Following. Original Note: Received consult for positive amphetamines and THC. Met with pt. and her significant other/father of baby at bedside. Pt. confirms using marijuana for appetite and sleep that she obtains from local dispensary. She also confirms using ecstasy a few days ago. She denies any other drug use during . She confirms limited care due to employment status of self and significant other. She reports a closed case with [facility] last year in regards to her 7 year old son. She lives with her father, grandfather and 7 year old son. She's planning to return to home when discharged with . Her significant other/father of baby is supportive. She states having all needed items to care for at return home. Have reported pt. situation to [facility] and per Rand Alberto (Intake #[id number]) an investigation will take place. Spoke to local DCFS worker and she plans to be present at hospital today to see pt. RN aware.
[2021-05-03 16:00] VITALS: BP 128/83; PULSE 82; RESP 20; TEMP 36.8
--- NOTE | 2021-05-03 16:10 | PM.OBPNVD ---
OB - PN: Subj Subjective Date/time seen: 05/03/21 16:10 Late entry. Patient doing well this morning. Reports moderate pain well controlled with medication. Patient denies any headache, chest pain, shortness of breath, nausea, vomiting. Tolerating small amount of p.o. Ladd catheter removed. Has not yet voided. No flatus yet. Limited ambulation with OOB to chair. OB - PN: Obj Data Labs CBC & Chem 7: 05/03/21 04:43 05/02/21 16:00 Labs: Laboratory Results - last 24 hr 05/02/21 05/02/21 05/02/21 16:00 16:00 16:00 WBC 20.7 H RBC 3.71 L Hgb 11.3 L Hct 33.0 L MCV 88.9 MCH 30.5 MCHC 34.2 RDW 13.3 Plt Count 333 MPV 11.6 H Immature Gran % (Auto) 1.5 H Neut % (Auto) 69.3 Lymph % (Auto) 17.9 L [place] % (Auto) 9.7 H Eos % (Auto) 1.3 Baso % (Auto) 0.3 Lymph # (Auto) 3.70 H [place] # (Auto) 2.0 H Eos # (Auto) 0.3 Baso # (Auto) 0.1 Abs Immat Gran (auto) 0.32 H Absolute Neuts (auto) 14.3 H Absolute Nucleated RBC 0.0 Nucleated RBC % 0.1 Sodium 134 L Potassium 3.5 Chloride 108 H Carbon Dioxide 20 L Anion Gap 6 L BUN 6 L Creatinine 0.40 L Estim Creat Clear Calc Not Reportable Estimated GFR > 60 Glucose 79 Uric Acid 3.7 Calcium 8.8 Total Bilirubin 0.3 AST 24 ALT 13 Alkaline Phosphatase 155 H Total Protein 6.0 L Albumin 3.1 L Urine Color Yellow Urine Appearance Cloudy H Urine pH 7.0 Ur Specific [place] 1.006 Urine Protein Negative Urine Glucose (UA) Negative Urine Ketones Negative Ur Blood (Man) Negative Urine Nitrate Negative Urine Bilirubin Negative Urine Urobilinogen Negative Ur Leukocyte Esterase 2+ H Urine RBC 0-2 Urine WBC 7-9 H Ur Squamous Epith Cells Many H Amorphous Sediment Few H Urine Bacteria Trace Urine Opiates Screen Urine Methadone Screen Ur Barbiturates Screen Ur Phencyclidine Scrn Ur Amphetamine Screen U Benzodiazepines Scrn Urine Cocaine Screen U Cannabinoids Screen RPR Blood Type Antibody Screen 11/29/21 11/29/21 11/29/21 16:03 16:47 16:47 WBC RBC Hgb Hct MCV MCH MCHC RDW Plt Count MPV Immature Gran % (Auto) Neut % (Auto) Lymph % (Auto) [place] % (Auto) Eos % (Auto) Baso % (Auto) Lymph # (Auto) [place] # (Auto) Eos # (Auto) Baso # (Auto) Abs Immat Gran (auto) Absolute Neuts (auto) Absolute Nucleated RBC Nucleated RBC % Sodium Potassium Chloride Carbon Dioxide Anion Gap BUN Creatinine Estim Creat Clear Calc Estimated GFR Glucose Uric Acid Calcium Total Bilirubin AST ALT Alkaline Phosphatase Total Protein Albumin Urine Color Urine Appearance Urine pH Ur Specific [place] Urine Protein Urine Glucose (UA) Urine Ketones Ur Blood (Man) Urine Nitrate Urine Bilirubin Urine Urobilinogen Ur Leukocyte Esterase Urine RBC Urine WBC Ur Squamous Epith Cells Amorphous Sediment Urine Bacteria Urine Opiates Screen Negative Urine Methadone Screen Negative Ur Barbiturates Screen Negative Ur Phencyclidine Scrn Negative Ur Amphetamine Screen Positive A U Benzodiazepines Scrn Negative Urine Cocaine Screen Negative U Cannabinoids Screen Positive A RPR Non-reactive Blood Type A Positive Antibody Screen Negative 05/03/21 04:43 WBC 29.7 H RBC 3.49 L Hgb 10.8 L Hct 31.8 L MCV 91.1 MCH 30.9 MCHC 34.0 RDW 13.3 Plt Count 292 MPV 11.5 H Immature Gran % (Auto) 1.0 H Neut % (Auto) 81.3 H Lymph % (Auto) 9.7 L [place] % (Auto) 6.8 Eos % (Auto) 0.8 Baso % (Auto) 0.4 Lymph # (Auto) 2.87 [place] # (Auto) 2.0 H Eos # (Auto) 0.2 Baso # (Auto) 0.1 Abs Immat Gran (auto) 0.30 H Absolute Neuts (auto) 24.2 H Absolute Nucle
[2021-05-03 19:35] VITALS: BP 136/92; PULSE 72; RESP 16; TEMP 37.1; O2SAT 98
[2021-05-04] MEDS: HYDROcodone/acetaminophen (*CRX) 5-325 MG TABLET 1 TAB PO ×3 (00:01→08:36)
[2021-05-04] MEDS: IBUPROFEN 600 MG TABLET PO ×3 (03:53→22:57)
[2021-05-04 08:00] VITALS: BP 138/80; PULSE 60; RESP 18; TEMP 36.3; O2SAT 98
[2021-05-04] MEDS: DOCUSATE SODIUM 100 MG CAPSULE PO ×2 (08:35→16:32)
[2021-05-04] MEDS: SIMETHICONE 80 MG TAB.CHEW PO ×3 (08:38→22:59)
--- NOTE | 2021-05-04 10:51 | P.PNOB_ITS ---
OB - PN: Subj Subjective Date/time seen: 05/04/21 10:51 Patient doing well this AM. Pain well controlled with medication. Denies any headache, chest pain, SOB, or N/V. Tolerating PO diet. Voiding without difficulty. Passing flatus. Ambulating without difficulty. OB - PN: Obj Data Labs CBC & Chem 7: 05/03/21 04:43 05/02/21 16:00 Labs: Laboratory Results - last 24 hr 05/03/21 04:43 WBC 29.7 H RBC 3.49 L Hgb 10.8 L Hct 31.8 L MCV 91.1 MCH 30.9 MCHC 34.0 RDW 13.3 Plt Count 292 MPV 11.5 H Immature Gran % (Auto) 1.0 H Neut % (Auto) 81.3 H Lymph % (Auto) 9.7 L [place] % (Auto) 6.8 Eos % (Auto) 0.8 Baso % (Auto) 0.4 Lymph # (Auto) 2.87 [place] # (Auto) 2.0 H Eos # (Auto) 0.2 Baso # (Auto) 0.1 Abs Immat Gran (auto) 0.30 H Absolute Neuts (auto) 24.2 H Absolute Nucleated RBC 0.0 Nucleated RBC % 0.0 OB - PN A/P Assessment and Plan (1) delivery delivered: Code(s): O82 - Encounter for delivery without indication Status: Acute Assessment and Plan: POD#2 doing well pain management PRN encourage ambulation and use of IS anticipate discharge home tomorrow Time Spent With Patient Time: Total time spent is greater than 50% in coordination of care (as docum ented) at patient's floor/unit and/or counseling patient: Exam Const: General: cooperative, healthy appearing, comfortable and no acute distress GI: Inspection: non-distended GI Palp: Yes Soft to palpation and No Tenderness to palpation present (GI) Other: inc c/d/i Extrem: Right lower extremity: no edema Left lower extremity: no edema Other: no calf tenderness
[2021-05-04 16:00] VITALS: BP 130/90; PULSE 78; RESP 18; TEMP 36.7
[2021-05-04] MEDS: HYDROcodone/acetaminophen (*CRX) 10-325 MG TABLET 1 TAB PO ×2 (16:32→22:58)
[2021-05-04] MEDS: TETANUS,DIPHTHERIA,AC PERTUSSIS ADULT (0.5 ML) BOOSTRIX IM (16:33)
[2021-05-04 20:00] VITALS: BP 137/94; PULSE 93; RESP 18; TEMP 36.7; O2SAT 100
[2021-05-05] MEDS: IBUPROFEN 600 MG TABLET PO ×2 (05:10→14:59)
[2021-05-05] MEDS: HYDROcodone/acetaminophen (*CRX) 5-325 MG TABLET 1 TAB PO ×3 (05:11→14:58)
[2021-05-05 08:35] VITALS: BP 139/87; PULSE 62; RESP 16; TEMP 36.7; O2SAT 98
--- NOTE | 2021-05-05 08:47 | P.PNOB_ITS ---
OB - PN: Subj Subjective Date/time seen: 05/05/21 08:47 Patient doing well. Pain well controlled with medication. Denies any headache, chest pain, SOB, N/V. Tolerating PO diet. Voiding without difficulty. Ambulating without difficulty. Passing flatus. Scant lochia. OB - PN: Obj Data Labs CBC & Chem 7: 05/03/21 04:43 05/02/21 16:00 OB - PN A/P Assessment and Plan (1) delivery delivered: Code(s): O82 - Encounter for delivery without indication Status: Acute Assessment and Plan: POD#3 doing well dc in stable condition pt will transition to no care bed as infant still admitted emergency precautions reviewed f/u in office in 1 week for BP check (2) Chronic hypertension in : Code(s): O10.919 - Unspecified pre-existing hypertension complicating , unspecified trimester Status: Acute Assessment and Plan: asymptomatic will continue to monitor RTO in 1 week for BP check Time Spent With Patient Time: Total time spent is greater than 50% in coordination of care (as documented) at patient's floor/unit and/or counseling patient: Exam Const: General: cooperative, healthy appearing, comfortable and no acute distress GI: Inspection: non-distended GI Palp: Yes Soft to palpation and No [place] derness to palpation present (GI) Other: inc c/d/i Extrem: Right lower extremity: no edema Left lower extremity: no edema Other: no calf tenderness
--- NOTE | 2021-05-05 09:45 | P.DS_ITS ---
DS: Admitting Diagnosis Discharge Date 05/05/21 Admitting Diagnosis Nonreassuring status OB - DS: Summary OB Procedures : None OB Procedures Intrapartum: OB Procedures: : None Peripartum Data Procedures: Procedures Operation Date: 05/02/21 18:00 Actual Procedure Side Surgeon p Section Not Applicable Franchesca Moreira MD Time Spent with Patient Time attestation: Total time spent providing and/or coordinating discharge services: DS: Data Data Completed and Pending Pending studies at discharge: Pending at discharge 05/02/21 20:11 Surgical [PTH] Routine Discharge Plan Discharge Attending physician on discharge: Franchesca Moreira Discharging Clinician: Franchesca Moreira Anticipated Discharge Date/Time: 05/05/21 09:46 Patient Disposition: Home, Self-Care Activity: as tolerated and pelvic rest Diet: regular Discharge Instructions: Call office ([phone]) to schedule the following appointments: 1. Blood pressure and postoperative/wound check in 1 weeks. 2. visit in 4-6 weeks. You may take Ibuprofen 600mg every 6 hours as needed for pain. I have sent a prescription for a stronger pain medication, [place], to your pharmacy. You may take this as prescribed for breakthrough pain (pain that is not controlled with Ibuprofen). No driving for at least two weeks. You also may not drive while taking narcotics. Pain medication may make you constipated. It may be helpful to take an [id number]-[id number] stool softener, such as Colace and/or Senokot, along with the pain medication to help lessen constipation. Call office or go to ED for pain not controlled with medication, headache, chest pain, shortness of breath, fever, chills, persistent nausea or vomiting, severe abdominal pain, heavy vaginal bleeding >2 pads/hour, foul vaginal discharge or odor, any redness near incision, severe pain, pus or drainage from incision site, or problems with your breasts. Patient Instructions: Antibiotic Form Stand Alone Forms: General Discharge Information Follow-up/Referrals: Franchesca Moreira MD [Physician] - Discharge Medications: New hydrocodone-acetaminophen 5-325 mg Tablet 1 - 2 tablet PO Q4-6H PRN (Reason: Moderate Pain (4-6)) Qty: 30 RF: 0 Continued potassium chloride 20 mEq tablet extended release 20 meq PO BID Qty: 20 RF: 0 DHA 200 mg capsule 200 mg PO DAILY RF: 0 ferrous sulfate 325 mg (65 mg iron) tablet 325 mg PO DAILY Qty: 90 RF: 0 PNV-DHA 27 mg iron-1 mg -300 mg capsule 1 cap PO .COMPLEX Qty: 30 RF: 3 Date of admission: 05/02/21 14:46 Primary Care Provider: PHYSICIAN,INTEGRATION CONSULTANT Admitting Provider: Franchesca Moreira Attending physician on admission: Franchesca Moreira Condition: Stable
[2021-05-05] MEDS: DOCUSATE SODIUM 100 MG CAPSULE PO (09:55)
== END 2021-05-05 15:00 | disposition home or self-care (01) | DRG 540 ==
LOC: ANHLDR 16:32 → ANHOB2 21:51
PROVIDERS: Admitting Provider Student in an Organized Health Care Education/Training Program; Visit Provider Student in an Organized Health Care Education/Training Program
PROC: 10D00Z1 Extraction of Products of Conception, Low, Open Approach (ICD-10-PCS; CPT 59514; principal; 2021-05-02 18:00)
DX: O36.8330 Maternal care for abnormalities of the fetal heart rate or rhythm, third trimester, not applicable or unspecified (principal); Z37.0 Single live birth; Z3A.36 36 weeks gestation of pregnancy; O34.211 Maternal care for low transverse scar from previous cesarean delivery; O10.92 Unspecified pre-existing hypertension complicating childbirth; Z91.19 Patient's noncompliance with other medical treatment and regimen; O99.334 Smoking (tobacco) complicating childbirth; F17.210 Nicotine dependence, cigarettes, uncomplicated; O32.1XX0 Maternal care for breech presentation, not applicable or unspecified; O99.324 Drug use complicating childbirth; F15.90 Other stimulant use, unspecified, uncomplicated; F12.90 Cannabis use, unspecified, uncomplicated
CPT/HCPCS: 36415; 80053; 80307; 81001; 84550; 85025; 86592; 86850; 86900; 86901; 87086; 87088; 88307; 90715; A9270; J0131; J1200; J2274; J2370; J2405; J2590; J2704; J7120

== ENCOUNTER 2021-11-18 17:57 | Emergency (ER) | payer OTHER, SELFPAY ==
[2021-11-18 18:00] VITALS: BP 153/108; PULSE 84; RESP 18; TEMP 36.6; O2SAT 99
[2021-11-18 18:26] LABS: Add Urine Microscopic? YES; Bilirubin Urine Negative (Negative); Blood Urine 3+ (Negative); Glucose Urine UA Negative (Negative); Ketones Urine Negative (Negative); Leukocyte Esterase Ur 3+ (Negative); Nitrate Urine Negative (Negative); Protein Urine 2+ (Negative); Specific Grav Ur 1.015 (1.010-1.020); Urobilinogen Urine 0.2 mg/dL (0.2-1.0); pH Urine 6.5 (5.0-8.0)
[2021-11-18] MEDS: IBUPROFEN 400 MG TABLET 800 MG PO (18:33)
[2021-11-18] MEDS: cloNIDine HCL 0.2 MG TABLET PO (18:35)
[2021-11-18 18:36] LABS: Appearance Urine Cloudy (Clear); Color Urine Light Yellow (Yellow); WBC Clumps Urine Present /hpf; WBC Urine >75 /hpf (0-3)
[2021-11-18 18:37] LABS: Bacteria Urine 4+ /hpf; Mucus Urine Few /lpf; Squamous Epithelial Cell Urine Many /hpf (Few)
--- NOTE | 2021-11-18 19:06 | PC.NURSE ---
pt does not have fmd, doctor referral list given. instructions for er follow up with dr jiang office and to establish pt care.
[2021-11-18 19:08] VITALS: BP 143/99; RESP 20
--- NOTE | 2021-11-18 19:09 | PC.NURSE ---
report to [facility] Andres.
[2021-11-18] MEDS: cefTRIAXone 1 GM, LIDOCAINE HCL 1% LOCAL INJ 2.1 ML IM (19:21)
--- NOTE | 2021-11-18 19:22 | ED.FEMALEGU ---
HPI - Female Genitourinary General Chief complaint: Urogenital-Female Stated complaint: stomach pain, back pain Time Seen by Provider: 11/18/21 17:59 Source: patient and RN notes reviewed Mode of arrival: ambulatory Limitations: no limitations History of Present Illness MD elicited complaint: back pain and other (mild suprapubic pain) Pertinent past history: recurrent UTIs Onset (ago): day(s) (2) Severity: mild Severity scale (1-10): 4 Quality of pain: cramping, dull and aching Consistency: constant Urinary symptoms: Dysuria Exacerbating factors: none Relieving factors: none Associated symptoms: abdominal pain Treatment prior to arrival: none Patient : No Related Data Allergies Allergy/AdvReac Type Severity Reaction Status Date / Time nickel Allergy rash, hives Verified 05/02/21 16:57 Review of Systems Review of Systems: All systems reviewed & are unremarkable except as noted in HPI and below Constitutional: Constitutional: Reports no additional constitutional complaints Eyes: Eyes: Reports no additional eye complaints ENT: Reports system reviewed and no additional complaints, except as documented Cardiovascular: Cardiovascular: Reports no additional cardiovascular complaints Respiratory: Respiratory: Reports no additional respiratory complaints Gastrointestinal: Gastrointestinal: Reports no additional gastrointestinal complaints Genitourinary: Genitourinary: Reports no additional female genitourinary complaints Musculoskeletal: Musculoskeletal: Reports no additional musculoskeletal complaints Integumentary/Breasts: Skin/Breast: Reports system reviewed and no additional complaints, except as docu Neurologic: Reports system reviewed and no additional complaints, except as documented Psychiatric: Psychiatric: Reports no additional psychiatric complaints Endocrine: Endocrine: Reports no additional endocrine complaints Hematologic/Lymphatic: Hematologic/Lymphatic: Reports no additional hematologic/lymphatic complaints Allergic/Immunologic: Allergic/Immunologic: Reports no additional allergic/immunologic complaints [facility] Past Medical History Medical History Chronic hypertension COVID-19 affecting in second trimester Hypokalemia UTI (urinary tract infection) Surgical History Surgical History History of appendectomy History of placement of ear tubes Previous section x1 Family History Family History Father Alcoholism Mother COPD (chronic obstructive pulmonary disease) Hypertension Depression Anxiety Grandparent Lymphoma Hypertension Anxiety Depression Cerebrovascular accident Social History Social History Smoking packs per day: 0.5 Smoking cigarettes per day: 10.0 Smoking status: Heavy tobacco smoker Tobacco type: cigarettes Second hand tobacco smoke exposure: Yes Alcohol intake: former Substance use: former Spiritual care concerns: No Exam Const: General: healthy appearing and no acute distress Nutritional Appearance: well nourished Orientation/consciousness: patient oriented x3 Limitations: no limitations HENMT: Head: normal to inspection Ears: external ears normal, TM's normal bilaterally and EAC's normal General nose exam: Normal external nose present and Normal nares present Face and sinus: normal facial exam and sinuses nontender Mouth: Yes Normal oral and palatal mucosa present and Yes moist mucous membranes Teeth and gingiva: dentition normal Throat: posterior oropharynx normal Eyes: Conjunctivae: conjunctivae normal Pupils: Equal, round and reactive pupils present EOM: EOMs intact bilaterally Neck: Neck: normal visual inspection, no lymphadenopathy and no meningeal signs Chest: Chest palpation &
[2021-11-18 19:45] VITALS: BP 141/98; PULSE 93; RESP 16; O2SAT 99
== END 2021-11-18 19:49 | disposition home or self-care (01) ==
PROVIDERS: Emergency Provider Emergency Medicine
DX: N39.0 Urinary tract infection, site not specified (principal); I10 Essential (primary) hypertension
CPT/HCPCS: 81001; 96372; 99283; A9270; J0696

== ENCOUNTER 2022-12-31 22:11 | Emergency (ER) | payer OTHER, SELFPAY ==
[2022-12-31 22:26] VITALS: BP 160/92; PULSE 75; RESP 20; TEMP 37; O2SAT 99
--- NOTE | 2022-12-31 22:27 | ED.GENADULT ---
HPI - General Adult General Chief complaint: Unspecified Stated complaint: pain in abdomen Source: patient History of Present Illness HPI narrative: 27-year-old female presenting with abdominal pain. Patient states she coughed earlier and has been experiencing pain in her lower abdomen since. She describes her pain as an intermittent pain in her suprapubic region. She states she only has the pain when she tenses her abdominal muscles. She denies any recent illnesses or trauma. Onset (ago): hour(s) Radiation: non-radiation Related Data Allergies Allergy/AdvReac Type Severity Reaction Status Date / Time nickel Allergy rash, hives Verified 04/17/22 07:10 [facility] Past Medical History Medical History Chronic hypertension COVID-19 affecting in second trimester Hypokalemia UTI (urinary tract infection) Surgical History Surgical History History of appendectomy History of placement of ear tubes Previous section x1 Family History Family History Father Alcoholism Mother COPD (chronic obstructive pulmonary disease) Hypertension Depression Anxiety Grandparent Lymphoma Hypertension Anxiety Depression Cerebrovascular accident Social History Social History Smoking packs per day: 0.5 Smoking cigarettes per day: 10.0 Smoking status: Current every day smoker Tobacco type: cigarettes Second hand tobacco smoke exposure: Yes Alcohol intake: former Substance use: former Spiritual care concerns: No Exam Const: General: cooperative, healthy appearing, comfortable and no acute distress HENMT: Head: normal to inspection and normocephalic Ears: hearing grossly normal bilaterally and external ears normal Face/Nose/Sinus: Normal external nose present and Normal nares present Face and sinus: normal facial exam and face symmetric Mouth: Yes Normal oral and palatal mucosa present and Yes lip normal Eyes: General: appearance normal, both eyes and all related structures Alignment and Position: alignment normal EOM: EOMs intact bilaterally Neck: Neck: normal visual inspection and full ROM Chest: Chest palpation & inspection: normal inspection of the chest and normal inspection of the chest Resp: Effort & Inspection: normal respiratory effort and able to speak in complete sentences Cardio: Jugular venous distension: no JVD Rate: regular rate GI: Inspection: normal to inspection and non-distended Other: Abdomen is soft and mildly tender in the suprapubic region.. No palpable masses. No skin discoloration or rashes. Negative McBurney's. Negative Pimentel's. No pelvic tenderness. Back/Spine/Pelvis: Cervical Spine: No pain with cervical ROM Thoracic/Lumbar Spine: thoraco-lumbar ROM normal Skin: General skin exam: normal color and turgor normal Neuro: General: patient oriented x3 and tone normal Extrem: General: normal to inspection and full ROM Psych: Appearance: grossly normal Mental Status: mental status grossly normal Course Vital Signs Vital signs: Vital Signs Temperature 37.0 C 12/31/22 22:26 Pulse Rate 75 12/31/22 22:26 Respiratory Rate 12/31/22 22:26 Blood Pressure 160/92 H 12/31/22 22:26 Pulse Oximetry 99 12/31/22 22:26 Oxygen Delivery Room Air 12/31/22 22:26 Temperature 37.0 C 12/31/22 22:26 Pulse Rate 75 12/31/22 22:26 Respiratory Rate 20 12/31/22 22:26 Blood Pressure 160/92 H 12/31/22 22:26 Pulse Oximetry 99 12/31/22 22:26 Oxygen Delivery Room Air 12/31/22 22:26 Medical Decision Making MDM Narrative Medical decision making narrative: Differential diagnosis includes but not limited to cystitis versus nephrolithiasis versus diverticulitis versus enteritis versus ova
[2022-12-31 22:33] LABS: Bilirubin Urine Negative (Negative); Blood Urine Trace-Intact (Negative); Color Urine Light Yellow (Yellow); Glucose Urine UA Negative (Negative); Ketones Urine Negative (Negative); Leukocyte Esterase Ur Trace LEU/UL (Negative); Nitrate Urine Negative (Negative); Protein Urine Negative (Negative); Urobilinogen Urine 0.2 mg/dL (0.2-1.0)
[2022-12-31 22:40] LABS: Add Urine Microscopic? YES; Amorphous Sediment Urine Moderate; Appearance Urine Slightly Cloudy (Clear); Bacteria Urine 1+ /hpf; Mucus Urine Moderate /lpf; RBC Urine 0-2 /hpf (0-2); Squamous Epithelial Cell Urine Many /hpf (Few); WBC Urine 0-3 /hpf (0-3)
[2022-12-31 22:41] LABS: Pregnancy On Board Control Positive; Urine Pregnancy Test Positive
[2022-12-31 23:52] VITALS: BP 153/89; PULSE 78; RESP 18; TEMP 36.6; O2SAT 98
== END 2022-12-31 23:53 | disposition home or self-care (01) ==
PROVIDERS: Emergency Provider Emergency Medicine
DX: Z32.01 Encounter for pregnancy test, result positive (principal); I10 Essential (primary) hypertension; F17.210 Nicotine dependence, cigarettes, uncomplicated; Z87.440 Personal history of urinary (tract) infections
CPT/HCPCS: 81001; 81025; 99283

== ENCOUNTER 2023-01-01 13:08 | Outpatient (CLI) | payer OTHER, SELFPAY ==
--- NOTE | ~2023-01-01 | US_ITS ---
EXAMINATION: US OB transvaginal DATE: 01/01/2023 14:42 INDICATION: Low pelvic pain. TECHNIQUE: Real-time transvaginal pelvic ultrasound was performed. COMPARISON: None. FINDINGS: There is an intrauterine gestational sac with mean diameter of 1.5 cm. A yolk sac is identified. The crown rump length measures 4 mm. These findings correlate with an estimated gestational age of 6 weeks and 1 day(s) (+/-) 3 day(s). heart motion is identified measuring 102 beats per minute (bpm) by M-mode Doppler. The right ovary measures 3.7 x 3.3 x 2.6 cm. The left ovary is not visualiz ed. There is trace free fluid in the pelvis. IMPRESSION: 1. Single living intrauterine gestation with estimated date of delivery of 08/26/2023. Reviewed, dictated and finalized at location A. IMPRESSION: 1. Single living intrauterine gestation with estimated date of delivery of 08/03.
== END 2023-01-01 13:09 | disposition home or self-care (01) ==
PROVIDERS: Visit Provider Emergency Medicine
DX: O99.891 Other specified diseases and conditions complicating pregnancy (principal); R10.9 Unspecified abdominal pain
CPT/HCPCS: 76817

== ENCOUNTER 2023-08-16 12:42 | Emergency (ER) | payer OTHER, SELFPAY ==
[2023-08-16 12:42] VITALS: BP 120/84; PULSE 80; RESP 18; TEMP 36.8; O2SAT 99
--- NOTE | 2023-08-16 13:23 | ED.EYEPROB ---
HPI - Eye Problem General Chief complaint: Eye Problems Stated complaint: left eye redness Source: patient Mode of arrival: ambulatory Limitations: no limitations History of Present Illness HPI Narrative: this is a 28-year-old female that presents with left eye redness irritation with green drainage does not wear contacts symptoms started yesterday has a niece that had similar symptoms otherwise no chest pain no shortness of breath no fever chills. chief complaint: eye redness Onset (ago): day(s) Onset description: gradual Duration: constant Location: left eye Eye Symptoms: redness Related Data Home Medications Medication Instructions Recorded Confirmed norethindrone (contraceptive) 0.35 0.35 mg PO DAILY 01/22/23 01/22/23 mg tablet Allergies Allergy/AdvReac Type Severity Reaction Status Date / Time nickel Allergy rash, hives Verified 07/26/23 07:40 Review of Systems Review of Systems: All systems reviewed & are unremarkable except as noted in HPI and below PMFSH Past Medical History Medical History Chronic hypertension COVID-19 affecting in second trimester Hypokalemia UTI (urinary tract infection) Surgical History Surgical History History of appendectomy History of placement of ear tubes Previous section x1 Family History Family History Father Alcoholism Mother COPD (chronic obstructive pulmonary disease) Hypertension Depression Anxiety Grandparent Lymphoma Hypertension Anxiety Depression Cerebrovascular accident Social History Social History Smoking packs per day: 0.5 Smoking cigarettes per day: 10.0 Smoking status: Current every day smoker Tobacco type: cigarettes Second hand tobacco smoke exposure: Yes Alcohol intake: former Substance use: former Lack of Transportation: No Lack of Food: Never True Current Housing: I Have Housing Concerned About Future Housing: No Difficulty Paying Gas/Electric Bills: No Difficulty Paying for Meds: No Currently Unemployed: No Education: Grade School Difficulty w/ Childcare or Family Care: No Spiritual care concerns: No Exam Const: General: healthy appearing and no acute distress Nutritional Appearance: well nourished Orientation/consciousness: patient oriented x3 Limitations: no limitations HENMT: Head: normal to inspection Eyes: Conjunctivae: conjunctival abnormality Pupils: Equal, round and reactive pupils present EOM: EOMs intact bilaterally Direct Ophthalmoscopy: no photophobia Neck: Neck: normal visual inspection Resp: Effort & Inspection: normal respiratory effort Auscultation: clear to auscultation bilaterally Cardio: Rate: regular rate Rhythm: regular rhythm Course Course Emergency Course: Patient received antibiotic eyedrop instilled to her left eye. Vital Signs Vital signs: Vital Signs Temperature 36.8 C 08/16/23 12:42 Pulse Rate 80 08/16/23 12:42 Respiratory Rate 18 08/16/23 12:42 Blood Pressure 120/84 08/16/23 12:42 Pulse Oximetry 99 08/16/23 12:42 Oxygen Delivery Room Air 08/16/23 12:42 Temperature 36.8 C 08/16/23 12:42 Pulse Rate 80 08/16/23 12:42 Respiratory Rate 18 08/16/23 12:42 Blood Pressure 120/84 08/16/23 12:42 Pulse Oximetry 99 08/16/23 12:42 Oxygen Delivery Room Air 08/16/23 12:42 Critical Care Time Critical Care Time Critical Care Time: No Discharge Plan Discharge Clinical Impression: Bacterial conjunctivitis Patient Disposition: Home, Self-Care Condition: Stable Instructions: Antibiotic Form, Conjunctivitis (ED) Additional Instructions: take medicine as prescribed and follow up with primary if symptoms persist or worsen. Prescriptions: N
[2023-08-16 13:46] VITALS: BP 124/74; PULSE 76; RESP 20; TEMP 36.9; O2SAT 99
[2023-08-16] MEDS: NEOMYCIN/POLYMYXIN/DEXAMETH OP SUSP 5 ML BTL 2 DROP LEFT EYE (13:54)
== END 2023-08-16 13:59 | disposition home or self-care (01) ==
PROVIDERS: Emergency Provider Emergency Medicine; PCP Family Medicine
DX: H10.9 Unspecified conjunctivitis (principal); I10 Essential (primary) hypertension; F17.210 Nicotine dependence, cigarettes, uncomplicated
CPT/HCPCS: 99283; A9270

== ENCOUNTER 2023-11-13 16:30 | Emergency (ER) | payer OTHER, SELFPAY ==
[2023-11-13 16:30] VITALS: BP 164/98; PULSE 95; RESP 18; TEMP 36.8; O2SAT 98
--- NOTE | 2023-11-13 16:35 | ED.GENADULT ---
HPI - General Adult General Stated complaint: sore throat Time Seen by Provider: 11/13/23 16:32 History of Present Illness HPI narrative: this is a 28-year-old female presenting ED with a chief complaint of sore throat. Says it has been scratchy on off for a couple weeks. Now when she looked in the mirror she noticed that she had some white exudates on her tonsils. Patient's daughter was recently diagnosed with strep throat. Patient had subjective fevers yesterday but did not take her temperature with a thermometer. She denies nausea vomiting diarrhea. No chest pain breathing abdominal pain. Related Data Home Medications Medication Instructions Recorded Confirmed norethindrone (contraceptive) 0.35 0.35 mg PO DAILY 01/22/23 01/22/23 mg tablet Allergies Allergy/AdvReac Type Severity Reaction Status Date / Time nickel Allergy rash, hives Verified 07/26/23 07:40 PMFSH Past Medical History Medical History Chronic hypertension COVID-19 affecting in second trimester Hypokalemia UTI (urinary tract infection) Surgical History Surgical History History of appendectomy History of placement of ear tubes Previous section x1 Family History Family History Father Alcoholism Mother COPD (chronic obstructive pulmonary disease) Hypertension Depression Anxiety Grandparent Lymphoma Hypertension Anxiety Depression Cerebrovascular accident Social History Social History Smoking packs per day: 0.5 Smoking cigarettes per day: 10.0 Smoking status: Current every day smoker Tobacco type: cigarettes Second hand tobacco smoke exposure: Yes Alcohol intake: former Substance use: former Lack of Transportation: No Lack of Food: Never True Current Housing: I Have Housing Concerned About Future Housing: No Difficulty Paying Gas/Electric Bills: No Difficulty Paying for Meds: No Currently Unemployed: No Education: Grade School Difficulty w/ Childcare or Family Care: No Spiritual care concerns: No Exam Narrative: APPEARANCE: No apparent distress. Speaking in normal voice. Well-appearing. Head: The right tonsil has erythema and exudates, no uvular deviation or evidence of abscess EYES: EOMI, NOSE: Atraumatic NECK: Trachea midline RESPIRATORY: No increased rate of breathing CARDIOVASCULAR: RRR, ABDOMINAL: Non-distended MUSCULOSKELETAl: No obvious deformities NEURO: Alert. Moving 4/4 extremities SKIN:: Warm, dry. Normal color PSYCHIATRIC: Normal affect Medical Decision Making MDM Narrative Medical decision making narrative: -Course: 28-year-old female with a child sick with strep throat at home presenting for sore throat and tonsillar exudates. Patient will be treated for strep pharyngitis. Given dexamethasone Motrin Tylenol pain control. Discharged with primary care follow-up. return precautions given. -DDX includes but is not limited to: strep pharyngitis, viral pharyngitis -Co-morbidities complicating care: HTN -Interventions: amoxicillin dexamethasone Tylenol Motrin -Shared decision making / Disposition: discharge -RX amoxicillin, Tylenol, Motrin Discharge Plan Discharge Clinical Impression: Acute tonsillitis Patient Disposition: Home, Self-Care Condition: Stable Instructions: Antibiotic Form, Strep Throat (DC) Additional Instructions: please complete the antibiotics as instructed. Use Motrin Tylenol for pain control. Return if you develop difficulty swallowing your own secretions, shortness of breath or feel like her condition is getting worse. Otherwise follow-up with your primary care physician. Prescriptions: New acetaminophen 500 mg tablet 1,000 mg PO TID PRN (Reason: skylar) 7 Days Qty
[2023-11-13] MEDS: ACETAMINOPHEN 500 MG TABLET 1000 MG PO (16:47)
[2023-11-13] MEDS: AMOXICILLIN 500 MG CAPSULE PO (16:47)
[2023-11-13] MEDS: dexAMETHasone SOD PHOS INJ 10 MG/ML 1 ML VIAL PO (16:48)
[2023-11-13] MEDS: IBUPROFEN 400 MG TABLET 800 MG PO (16:48)
== END 2023-11-13 16:53 | disposition home or self-care (01) ==
LOC: CHSED 16:45
PROVIDERS: Emergency Provider Emergency Medicine; PCP Family Medicine
DX: J03.90 Acute tonsillitis, unspecified (principal); I10 Essential (primary) hypertension; F17.210 Nicotine dependence, cigarettes, uncomplicated
CPT/HCPCS: 99283; A9270; J1100

== ENCOUNTER 2023-11-22 00:41 | Emergency (ER) | payer OTHER, SELFPAY ==
[2023-11-22 00:44] VITALS: BP 109/78; PULSE 94; RESP 18; TEMP 36.5; O2SAT 97
--- NOTE | 2023-11-22 00:53 | ED.GENADULT ---
HPI - General Adult General Chief complaint: Unspecified Stated complaint: left sided tingles Time Seen by Provider: 11/22/23 00:53 Source: patient Mode of arrival: ambulatory Limitations: no limitations History of Present Illness HPI narrative: 28-year-old female, smoker on control pills presented to the ER EMS for -- chest discomfort which started 3 hours ago. The patient denied any chest pain. No radiation of the discomfort. -- Numbness and tingling of the left half of the body. The numbness and tingling started with the chest pain and resolved by the time the patient came to the ER. No other focal neuro deficits noted -- patient has been drinking since last evening. patient is currently on amoxicillin for a recent throat infection. Onset (ago): hour(s) ( 3 hours) Pain Consistency: constant Relieving factors: none Exacerbating factors: none Treatments prior to arrival: none Related Data Home Medications Medication Instructions Recorded Confirmed norethindrone (contraceptive) 0.35 0.35 mg PO DAILY 01/22/23 11/22/23 mg tablet Allergies Allergy/AdvReac Type Severity Reaction Status Date / Time nickel Allergy rash, hives Verified 11/22/23 00:47 Review of Systems Review of Systems: All systems reviewed & are unremarkable except as noted in HPI and below Constitutional: Constitutional: Reports as per HPI and Reports no additional constitutional complaints Eyes: Eyes: Reports as per HPI and Reports no additional eye complaints ENT: Reports system reviewed and no additional complaints, except as documented and Reports as per HPI Cardiovascular: Cardiovascular: Reports as per HPI and Reports no additional cardiovascular complaints Comments: transient chest discomfort Respiratory: Respiratory: Reports as per HPI and Reports no additional respiratory complaints Gastrointestinal: Gastrointestinal: Reports as per HPI and Reports no additional gastrointestinal complaints Genitourinary: Genitourinary: Reports no additional female genitourinary complaints and Reports as per HPI Comments: patient is on control medications. She has the last LMP 1 week ago. Musculoskeletal: Musculoskeletal: Reports no additional musculoskeletal complaints and Reports as per HPI Integumentary/Breasts: Skin/Breast: Reports system reviewed and no additional complaints, except as docu and Reports as per HPI Neurologic: Reports system reviewed and no additional complaints, except as documented and Reports as per HPI Psychiatric: Psychiatric: Reports no additional psychiatric complaints and Reports as per HPI Endocrine: Endocrine: Reports no additional endocrine complaints and Reports as per HPI Hematologic/Lymphatic: Hematologic/Lymphatic: Reports no additional hematologic/lymphatic complaints and Reports as per HPI Allergic/Immunologic: Allergic/Immunologic: Reports no additional allergic/immunologic complaints and Reports as per HPI PMFSH Past Medical History Medical History Chronic hypertension COVID-19 affecting in second trimester Hypokalemia UTI (urinary tract infection) Surgical History Surgical History History of appendectomy History of placement of ear tubes Previous section x1 Family History Family History Father Alcoholism Mother COPD (chronic obstructive pulmonary disease) Hypertension Depression Anxiety Grandparent Lymphoma Hypertension Anxiety Depression Cerebrovascular accident Social History Social History Smoking packs per day: 0.5 Smoking cigarettes per day: 10.0 Smoking status: Current every day smoker Tobacco type: cigarettes Second hand tobacco smoke exposure: Yes Alcohol intake: former Substance use: form
--- NOTE | 2023-11-22 01:05 | ECG_ITS ---
Test Date: 2023-11-22 01:18:20 Measurements Intervals [place] Rate: 88 P: 21 [place]: 167 QRS: 20 QRSD: 99 T: 23 QT: 366 QTc: 443 Interpretive Statements SINUS RHYTHM POSSIBLE RIGHT VENTRICULAR CONDUCTION DELAY [RSR (QR) IN V1/V2] ABNORMAL ECG No previous ECG available for comparison Electronically Signed On 11-23-2023 11:01:54 CDT by Desmond Ribeiro M.D.
[2023-11-22 01:13] LABS: Basophils Absolute Auto 0.09 K/mm3 (0.00-0.10); Basophils Percent Auto 0.6 % (0.0-1.0); Eosinophils Absolute Auto 0.23 K/mm3 (0.02-0.50); Eosinophils Percent Auto 1.6 % (1.0-6.0); Hematocrit 42.7 % (35.0-49.0); Hemoglobin 14.6 g/dL (12.0-15.0); Immature Granulocyte Percent A 0.7 % (0.0-0.0); Lymphocytes Absolute Auto 3.89 K/mm3 (1.10-4.50); Lymphocytes Percent Auto 27.1 % (18.0-42.0); Mean Corpuscular HGB Conc 34.2 g/dL (32-36); Mean Corpuscular Hemoglobin 30.9 pg (27.0-31.0); Mean Corpuscular Volume 90.3 fL (78.0-102.0); Mean Platelet Volume 10.7 fl (9.2-11.8); Monocytes Absolute Auto 1.28 K/mm3 (0.10-0.90); Monocytes Percent Auto 8.9 % (2.0-11.0); Neutrophils Absolute Auto 8.76 K/mm3 (1.70-7.20); Neutrophils Percent Auto 61.1 % (50.0-70.0); Platelet Count Result 346 K/mm3 (150-420); Red Blood Count 4.73 M/mm3 (4.20-5.40); Red Cell Distribution Width 13.7 % (11.6-14.4); White Blood Count 14.4 K/mm3 (4.8-10.8)
[2023-11-22 01:17] LABS: Pregnancy On Board Control Positive; Urine Pregnancy Test Negative
[2023-11-22 01:26] LABS: Amphetamine Screen Urine Negative (Negative); Barbiturate Screen Urine Negative (Negative); Benzodiazepines Screen Urine Negative (Negative); Cannabinoid Screen Urine Negative (Negative); Cocaine Screen Urine Negative (Negative); Methadone Screen Urine Negative (Negative); Opiate Screen Urine Negative (Negative); Phencyclidine Screen Urine Negative (Negative)
[2023-11-22 01:28] LABS: Prothrombin Time 10.6 Seconds (9.50-12.1)
--- NOTE | 2023-11-22 01:33 | PC.NURSE ---
Pt has decided that she is feeling better and does not want to proceed with assessment and diagnostic testing. Pt has signed AMA form and is waiting for safe ride home to arrive to pick her up. Pt is alert and oriented with no c/o pain, tingling, numbness
[2023-11-22 01:38] LABS: Alanine Aminotransferase 64 U/L (14-59); Alkaline Phosphatase 42 U/L (46-116); Anion Gap 11 mmol/L (4-12); Aspartate Amino Transferase 37 U/L (15-37); Bilirubin,Total 0.1 mg/dL (0.00-1.00); Blood Urea Nitrogen 7 mg/dL (7-18); Calcium 8.4 mg/dL (8.5-10.1); Carbon Dioxide 25 mmol/L (21-32); Chloride 106 mmol/L (98-108); Estimated CRCL calculation 116 ml/min; Estimated Glomerular Filt Rate > 60; Glucose 93 mg/dL (70-99); Lipase 44 U/L (16-77); Osmolality Calculated 292 mOsm/kg (285-295); Potassium 3.4 mmol/L (3.5-5.1); Sodium 142 mmol/L (136-145); Troponin I 14.3 ng/L (0.00-60.4)
[2023-11-22 01:41] LABS: Ethanol 230 mg/dL (0-6)
== END 2023-11-22 01:40 | disposition left against medical advice (07) ==
LOC: CHSED 01:23
PROVIDERS: Emergency Provider Internal Medicine Critical Care Medicine; PCP Family Medicine
DX: R07.9 Chest pain, unspecified (principal); R20.0 Anesthesia of skin; R20.2 Paresthesia of skin; I10 Essential (primary) hypertension; F17.210 Nicotine dependence, cigarettes, uncomplicated
CPT/HCPCS: 36415; 80053; 80307; 81025; 83690; 84484; 85025; 85610; 93005; 99284

== ENCOUNTER 2024-05-20 18:11 | Emergency (ER) | payer BC, OTHER, SELFPAY ==
[2024-05-20 18:11] VITALS: BP 175/111; PULSE 75; RESP 16; TEMP 36.6; O2SAT 98
--- NOTE | 2024-05-20 18:15 | ED_ITS ---
HPI - Eye Problem General Chief complaint: Eye Problems Stated complaint: FOREIGN BODY TO EYE Time Seen by Provider: 05/20/24 18:15 History of Present Illness HPI Narrative: Pt presents with redness and discharge from both eyes. Pt says daughter has pink eye and now she has it. Pt denies visual problems. Pt denies FB in eyes. Related Data Home Medications ?Medication ?Instructions ?Recorded ?Confirmed ?Last Taken ?Type norethindrone (contraceptive) 0.35 0.35 mg PO DAILY 01/22/23 05/20/24 Unknown History mg tablet Allergies Allergy/AdvReac Type Severity Reaction Status Date / Time nickel Allergy rash, hives Verified 05/20/24 18:16 Review of Systems Review of Systems: All systems reviewed & are unremarkable except as noted in HPI and below PMFSH Past Medical History Medical History Chronic hypertension COVID-19 affecting in second trimester Hypokalemia UTI (urinary tract infection) Surgical History Surgical History History of appendectomy History of placement of ear tubes Previous section x1 Family History Family History Father Alcoholism Mother COPD (chronic obstructive pulmonary disease) Hypertension Depression Anxiety Grandparent Lymphoma Hypertension Anxiety Depression Cerebrovascular accident Social History Social History Smoking packs per day: 0.5 Smoking cigarettes per day: 10.0 Smoking status: Current every day smoker Tobacco type: cigarettes Second hand tobacco smoke exposure: Yes Alcohol intake: former Substance use: former Lack of Transportation: No Lack of Food: Never True Current Housing: I Have Housing Concerned About Future Housing: No Difficulty Paying Gas/Electric Bills: No Difficulty Paying for Meds: No Currently Unemployed: No Education: Grade School Difficulty w/ Childcare or Family Care: No Spiritual care concerns: No Exam Const: General: healthy appearing and no acute distress Nutritional Appearance: well nourished Orientation/consciousness: patient oriented x3 Limitations: no limitations Eyes: Conjunctivae: conjunctival abnormality (inflamed bilaterally) Pupils: Equal, round and reactive pupils present EOM: EOMs intact bilaterally Resp: Effort & Inspection: normal respiratory effort Cardio: Rate: regular rate Rhythm: regular rhythm MDM - Eye Problem MDM Narrative Medical decision making narrative: Pt exposed to pink eye and now appears to have pink eye herself. will prescribe antibiotic gtts. Discharge Plan Discharge Clinical Impression: Conjunctivitis Patient Disposition: Home, Self-Care Condition: Stable Instructions: Antibiotic Form, Conjunctivitis (ED) Patient Language: Chinese Prescriptions: New gentamicin 0.3 % drops 2 drp EACH EYE Q4H Qty: 5 0RF No Action norethindrone (contraceptive) 0.35 mg tablet 0.35 mg PO DAILY losartan 25 mg tablet 25 mg PO DAILY Qty: 30 2RF Follow-up/Referrals: UNKNOWN,DOCTOR [Primary Care Provider] -
--- NOTE | 2024-05-20 18:23 | PC.NURSE ---
ERP is aware patient's blood pressure is elevated, patient has not taken her blood pressure medication yet today.
[2024-05-20 18:28] VITALS: BP 175/111; PULSE 75; RESP 16; TEMP 36.6; O2SAT 98
== END 2024-05-20 18:28 | disposition home or self-care (01) ==
LOC: CHSED 18:27
PROVIDERS: Emergency Provider Emergency Medicine; PCP Family Medicine
DX: H10.9 Unspecified conjunctivitis (principal); I10 Essential (primary) hypertension; F17.210 Nicotine dependence, cigarettes, uncomplicated
CPT/HCPCS: 99283

== ENCOUNTER 2024-05-23 11:43 | Emergency (ER) | payer BC, SELFPAY ==
[2024-05-23 11:44] VITALS: BP 178/125; PULSE 84; RESP 18; TEMP 36.7; O2SAT 98
--- NOTE | 2024-05-23 12:03 | ED.EYEPROB ---
HPI - Eye Problem General Chief complaint: Eye Problems Stated complaint: rash on face Time Seen by Provider: 05/23/24 11:49 Source: patient Mode of arrival: ambulatory Limitations: no limitations History of Present Illness HPI Narrative: 29-year-old female, smoker presents with -- conjunctivitis of both eyes. She was seen on 05/20 and prescribed gentamicin eyedrops. -- Vesicular/pustular lesions on the lips the chin and the neck. -- Enlarged Tender right upper cervical lymphadenopathy. subjective fevers MD chief complaint: eye pain and eye redness Onset (ago): day(s) ( 3 days) Onset description: gradual Duration: constant Location: both eyes Eye Symptoms: burning, redness, pain and photophobia Associated symptoms: none ( vesicular/pustular lesions in the lips and the chin.) Related Data Home Medications ?Medication ?Instructions ?Recorded ?Confirmed ?Last Taken ?Type norethindrone (contraceptive) 0.35 0.35 mg PO DAILY 01/22/23 05/20/24 Unknown History mg tablet Allergies Allergy/AdvReac Type Severity Reaction Status Date / Time nickel Allergy rash, hives Verified 05/23/24 11:49 Review of Systems Review of Systems: All systems reviewed & are unremarkable except as noted in HPI and below Constitutional: Constitutional: Reports as per HPI and Reports no additional constitutional complaints Eyes: Eyes: Reports as per HPI and Reports no additional eye complaints ENT: Reports system reviewed and no additional complaints, except as documented and Reports as per HPI Cardiovascular: Cardiovascular: Reports as per HPI and Reports no additional cardiovascular complaints Respiratory: Respiratory: Reports as per HPI and Reports no additional respiratory complaints Gastrointestinal: Gastrointestinal: Reports as per HPI and Reports no additional gastrointestinal complaints Genitourinary: Genitourinary: Reports no additional female genitourinary complaints and Reports as per HPI Musculoskeletal: Musculoskeletal: Reports no additional musculoskeletal complaints and Reports as per HPI Integumentary/Breasts: Skin/Breast: Reports system reviewed and no additional complaints, except as docu and Reports as per HPI Comments: Vesicular/pustular lesions on the lips, chin and upper neck Neurologic: Reports system reviewed and no additional complaints, except as documented and Reports as per HPI Psychiatric: Psychiatric: Reports no additional psychiatric complaints and Reports as per HPI Endocrine: Endocrine: Reports no additional endocrine complaints and Reports as per HPI Hematologic/Lymphatic: Hematologic/Lymphatic: Reports no additional hematologic/lymphatic complaints and Reports as per HPI Allergic/Immunologic: Allergic/Immunologic: Reports no additional allergic/immunologic complaints and Reports as per HPI [facility] Past Medical History Medical History Chronic hypertension COVID-19 affecting in second trimester Hypokalemia UTI (urinary tract infection) Surgical History Surgical History History of placement of ear tubes History of appendectomy Previous section x1 Family History Family History Father Alcoholism Mother COPD (chronic obstructive pulmonary disease) Hypertension Depression Anxiety Grandparent Lymphoma Hypertension Anxiety Depression Cerebrovascular accident Social History Social History Smoking packs per day: 0.5 Smoking cigarettes per day: 10.0 Smoking status: Current every day smoker Tobacco type: cigarettes Second hand tobacco smoke exposure: Yes Alcohol intake: former Substance use: former Lack of Transportation: No Lack of Food: Never True Current Housing: I Have Housing Concerned About Future Housing: No Difficulty Paying Gas/Electric Bills: No Difficulty Paying for Meds: No Currently Unemployed: No Education: Grade School Difficulty w/ Childcare or Family Care: No Spiritual care concerns: No Exam Narrative: afebrile. Blood pressure 178/125 Const: General: no acute distress Orientation/consciousness: patient oriented x3 Limitations: no limitations HENMT: Head: normal to inspection Ears: external ears normal Face/Nose/Sinus: Normal external nose present ( pustular /vesicular lesions on the lips the chin and upper neck) Mouth: Yes Normal oral and palatal mucosa present Throat: posterior oropharynx normal ( pharyngeal erythema) Eyes: Conjunctivae: conjunctival abnormality Pupils: Equal, round and reactive pupils present EOM: EOMs intact bilaterally Direct Ophthalmoscopy: photophobia Other: conjunctival erythema fluorescein staining after tetracaine -- no dendritic lesions noted. Neck: Neck: normal visual inspection Other: tender right upper cervical lymphadenopathy Chest: Chest palpation & inspection: normal inspection of the chest Resp: Effort & Inspection: normal respiratory effort Auscultation: clear to auscultation bilaterally Cardio: Rate: regular rate Rhythm: regular rhythm GI: Other: soft. no tenderness/ rigidity /rebound : General: Yes no CVA tenderness Back/Spine/Pelvis: Back: no CVA tenderness Skin: Other: herpes labialis of the lips the chin and the upper neck the lesions started of as vesicular eruption and currently it is p Neuro: General: patient oriented x3, moves all extremities, no meningeal signs, no focal motor deficits and CN's II-XI intact bilaterally Cranial nerves: Yes Nystagmus not present Speech: normal speech Gait exam (Neuro): Normal gait present Extrem: General: normal to inspection and no clubbing, cyanosis or edema Psych: Mental Status: mental status grossly normal Affect: normal affect Attitude: cooperative Course Course Emergency Course: conjunctivitis-- continue gentamicin. Even though the fluorescent staining of the eye did not reveal dendritic ulcers cannot rule out herpetic conjunctivitis/ keratitis. Advised the patient to follow-up with an medical accounts receivable specialist if no resolution is noted with acyclovir. herpes labialis/ herpetic chad-- the lesions are spreading. Will treat with acyclovir and Augmentin for secondary infection tender upper cervical lymphadenopathy-- likely related to the herpetic lesions with secondary infection hypertension-- will increase the dose of losartan and add HCTZ the patient is due to follow up with primary care physician. Vital Signs Vital signs: Vital Signs Temperature 36.7 C 05/23/24 11:44 Pulse Rate 84 05/23/24 11:44 Respiratory Rate 18 05/23/24 11:44 Blood Pressure 178/125 H 05/23/24 11:44 Pulse Oximetry 98 05/23/24 11:44 Oxygen Delivery Room Air 05/23/24 11:44 Temperature 36.7 C 05/23/24 11:44 Pulse Rate 84 05/23/24 11:44 Respiratory Rate 18 05/23/24 11:44 Blood Pressure 178/125 H 05/23/24 11:44 Pulse Oximetry 98 05/23/24 11:44 Oxygen Delivery Room Air 05/23/24 11:44 MDM - Eye Problem MDM Narrative Medical decision making narrative: conjunctivitis herpes labialis with possible secondary infection hypertension Differential Diagnosis Differential diagnosis: Likely corneal abrasion Medical Records Attestation: I reviewed the patient's medical records. Discharge Plan Discharge Clinical Impression: Herpes labialis Hypertension Qualifiers: Hypertension type: unspecified Qualified Code(s): I10 - Essential (primary) hypertension Conjunctivitis Qualifiers: Conjunctivitis type: unspecified Laterality: bilateral Qualified Code(s): H10.9 - Unspecified conjunctivitis Patient Disposition: Home, Self-Care Condition: Stable Instructions: Antibiotic Form, Keratitis (ED) Patient Language: Icelandic Prescriptions: New acyclovir 400 mg tablet 400 mg PO TID Qty: 20 0RF amoxicillin-pot clavulanate 875-125 mg tablet 1 tablet PO Q12H Qty: 14 0RF losartan-hydrochlorothiazide 50-12.5 mg tablet 1 tablet PO DAILY Qty: 30 0RF Discontinued losartan 25 mg tablet 25 mg PO DAILY Qty: 30 2RF No Action gentamicin 0.3 % drops 2 drp EACH EYE Q4H Qty: 5 0RF norethindrone (contraceptive) 0.35 mg tablet 0.35 mg PO DAILY Follow-up/Referrals: Kenny Palmer DO [Primary Care Provider] - Time of Disposition: 13:24
[2024-05-23] MEDS: FLUORESCEIN SOD 1 MG/STRIP EACH EYE (12:32)
[2024-05-23] MEDS: DACRIOSE EYE IRRIGATION 118 ML BOTTLE EACH EYE (12:32)
[2024-05-23] MEDS: TETRACAINE HCL 0.5% OPHTH SOLN 4 ML BTL 1 DROP EACH EYE (12:32)
[2024-05-23 13:29] VITALS: BP 180/125; PULSE 83; RESP 18; TEMP 36.6; O2SAT 99
== END 2024-05-23 13:35 | disposition home or self-care (01) ==
PROVIDERS: Emergency Provider Internal Medicine Critical Care Medicine; PCP Family Medicine
DX: B00.1 Herpesviral vesicular dermatitis (principal); H10.9 Unspecified conjunctivitis; I10 Essential (primary) hypertension; F17.210 Nicotine dependence, cigarettes, uncomplicated
CPT/HCPCS: 99283; A9270

== ENCOUNTER 2025-03-14 10:35 | Emergency (ER) | payer OTHER, SELFPAY ==
[2025-03-14 10:35] VITALS: BP 114/87; PULSE 93; RESP 16; TEMP 36.8; O2SAT 100
--- OUTSIDE RECORDS SUMMARY | 2025-03-14 10:37 | XMS_ITS | Patient Health Record ---
Author Organization [facility] Address [address] [place] [address] Care Team Providers Care Spare Fixer Name Role Phone Keesha Berry Primary Care Provider Fritz Patiño Unavailable [phone] Allergies No Known Allergies Reason For Referral No Information Medications Medication SIG (Take, Route, Fr equency, Duration) Notes Start Date End Date Status LORazepam 1 MG 1 tablet at bedtime as needed Orally Twice a day Active Thiamine HCl 100 MG 1 tablet Orally Once a day; Duration: 30 day(s) Active Lisinopril 10 MG 1 tablet Orally Once a day; Duration: 30 day(s) Active Folic Acid 1 MG 1 tablet Orally Once a day; Duration: 30 day(s) Active Multivitamin - 1 tablet Orally Once a day; Duration: 30 day(s) Active Social History Tobacco Use: Social History Observation Description Date Details (start date - stop date) Current Smoker NA - NA Sex Assigned At : Social History Observation Description Sex Assigned At Female Dont use, Tobacco Use/Smoking Question Answer Notes Are you a current every day smoker PRAPARE Question Answer Notes Date Completed/Updated: 05/30/2024 What is your current housing situation? I do not have housing (staying with others, in a hotel, in a residential, living outside on the street, on a beach, or in a park) Are you worried about losing your housing? No What is the highest level of school that you have finished? 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 Check all that apply I do not have problems meeting my needs Has lack of transportation k ept you from medical appointments, meetings, work or from getting things needed for daily living? No How often do you see or talk to people that you care about and feel close to? (For example: talking to friends on the phone, visiting friends or family, going to jainism or club meetings) More than 5 times a week How stressed are you? Stress is when someone feels tense, nervous, anxious, or can\t sleep at night because their mind is troubled Very much In the past year have you sp ent more than 2 nights in a row in a custodial, longterm, intermediate center, or juvenile correctional facility? No Are you a refugee? No What country are you from? [place] Do you feel physically and e motionally safe where you currently live? Yes In the past year, have you b een afraid of your partner or ex-partner? No PRAPARE Score: 6 Problems Problem Type SNOMED Code ICD Code Onset Dates Problem Status W/U Status Risk Notes Problem Tobacco user (784813327) Nicotine dependence, unspecified, uncomplicated (F17.200) Active confirmed Problem Physical examination, complete (75910601) Physical exam (Z00.00) Active confirmed Encounters Encounter Location Date Provider Diagnosis [address] [place] [address] 06/02/2024 Frizt Patiño Plan Of Treatment No Information Insurance Providers Payer Name Payer Address Payer Phone Subscriber Number Group Number Insured Name Patient Relationship to Insured Coverage Start Date Coverage End Date [facility] Attn Claims Department [address] [facility] [place] [address] [id number] Danae Liu Self - patient is the insured 3 Medical (General) History Surgical History Surgery Date(Month/Year) Appendectomy 2013 C section x 2 Hospitalization History Reason Date(Month/Year) Child x2 See surgeries
--- OUTSIDE RECORDS SUMMARY | 2025-03-14 10:37 | XMS_ITS | Clinical Summary ---
Author Organization [facility] Address [address] [place] [address] Phone Care Team Providers Care Rivet Heater Gas Name Role Phone Unavailable Primary Care Provider Unavailabl e Allergies No known active allergies Medications vitamin-iron fumarate-folic acid 27 mg-0.8 mg Tablet Take 1 Tablet by mouth daily. Active aspirin (ECOTRIN EC) 81 mg Tablet, Delayed Release (E.C.) Take 81 mg by mouth daily. Active Active Problems Problem Noted Date Diagnosed Date Chronic hypertension in 03/02/2021 History of delivery, antepartum 021 Tobacco abuse 03/02/2021 Social History Tobacco Use Types Packs/Day Years Used Date Smoking Tobacco: Every Day Cigarettes Smokeless Tobacco: Never Alcohol Use Standard Drinks/Week Comments Not Currently 0 (1 standard drink = 0.6 oz pur e alcohol) Comments No Sex and Gender Information Value Date Recorded Sex Assigned at Not on file Legal Sex Female 12:59 PM CDT Gender Identity Not on file Sexual Orientation Not on file Last Filed Vital Signs Vital Sign Reading Time Taken Comments Blood Pressure - - Pulse - - Temperature - - Respiratory Rate - - Oxygen Saturation - - Inhaled Oxygen Concentration - - Weight 56.2 kg (124 lb) 03/02/2021 9:08 AM CDT Height 154.9 cm (5' 1) 03/02/2021 9:08 AM CDT Body Mass Index 23.43 03/02/2021 9:08 AM CDT Plan of Treatment Health Maintenance Due Date Last Done Comments DTAP/TDAP/TD VACCINES (1 - Tdap) 2015 HEPATITIS B VACCINES (1 of 3 - 19+ 3-dose series) 03/06 CERVICAL CANCER SCREENING 2017 HPV/Cotest (21-29) 2017 PAP SMEAR 2017 HPV VACCINES (1 - 3-dose SCDM series) 2023 INFLUENZA VACCINE (#1) 2025 Insurance MEDICAID
--- OUTSIDE RECORDS SUMMARY | 2025-03-14 10:37 | XMS_ITS | Clinical Summary ---
Author Organization [facility] Address [address] [place] [address] Care Team Providers Care Director Of Exhibits Name Role Phone None, Provider MD Primary Care Provider Unavaila ble Allergies Active Allergy Reactions Criticality Noted Date Comments Nickel Rash Low 05/10/2019 Medications Levonorgestrel (MIRENA, 52 MG, IU) Active Family History Medical History Relation Comments Kidney Disease Mother Relation Status Comments Mother mother after overdose Social History Tobacco Use Types Packs/Day Years Used Date Smoking Tobacco: Every Day Cigarettes Smokeless Tobacco: Former Alcohol Use Standard Drinks/Week Comments No 0 (1 standard drink = 0.6 oz pur e alcohol) denies AUDIT-C Answer Date Recorded Frequency of Alcohol Consumption Never 05/10/2019 Average Number of Drinks Not on file 019 Frequency of Binge Drinking Not on file 12/2018 Comments No Sex and Gender Information Value Date Recorded Sex Assigned at Not on file Legal Sex Female 4:27 PM CDT Gender Identity Not on file Sexual Orientation Not on file Last Filed Vital Signs Vital Sign Reading Time Taken Comments Blood Pressure 131/89 05/10/2019 5:57 PM BIO MEDICAL TECHNICIAN Pulse 78 05/10/2019 5:57 PM BIO MEDICAL TECHNICIAN Temperature 36.2 C (97.2 F) 05/10/2019 5:57 PM BIO MEDICAL TECHNICIAN Respiratory Rate 20 05/10/2019 5:57 PM BIO MEDICAL TECHNICIAN Oxygen Saturation 97% 05/10/2019 5:57 PM BIO MEDICAL TECHNICIAN Inhaled Oxygen Concentration - - Weight 63.5 kg (140 lb) 05/10/2019 5:57 PM BIO MEDICAL TECHNICIAN Height 154.9 cm (5' 1) 05/10/2019 5:57 PM BIO MEDICAL TECHNICIAN Body Mass Index 26.45 05/10/2019 5:57 PM BIO MEDICAL TECHNICIAN Plan of Treatment Health Maintenance Due Date Last Done Comments Cervical Cancer Screening Pa p Smear (Age 21 to 29) Every 3 Years 1996 Cervical Cancer Screening 1996 Annual Physical 1999 Hepatitis C 2014 DTaP, Tdap and Td Vaccines ( 1 - Tdap) 2015 Hepatitis B Vaccines (1 of 3 - 19+ 3-dose series) 2015 Pneumococcal Vaccine: Pediat rics (0 to 5 Years) and At-Risk Patients (6 to 49 Years) (1 of 2 - PCV) 2015 HPV Vaccines (1 - 3-dose SCD M series) 2023 COVID-19 Vaccine (1 - 2023-2 5 season) 2025 Meningococcal B Vaccine Aged Out No l onger eligible based on patient's age to complete this topic Meningococcal Vaccine Aged Out No daysi heber eligible based on patient's age to complete this topic RSV Immunizations Under 20 Months Aged Out No longer eligible based on patient's age to complete this topic Insurance Care Teams Director Of Exhibits Relationship Specialty Start Date End Date None, Provider, PCP - General 02/07/19
[2025-03-14 11:05] LABS: Add Urine Microscopic? YES; Appearance Urine Clear (Clear); Glucose Urine UA Trace (Negative); Leukocyte Esterase Ur 3+ LEU/UL (Negative); Nitrate Urine Negative (Negative); Specific Grav Ur <= 1.005 (1.010-1.020)
--- OUTSIDE RECORDS SUMMARY | 2025-03-14 11:12 | XMS_ITS | Clinical Summary ---
Author Organization [facility] Address [address] [place] [address] Phone Care Team Providers Care Automotive Lube Technician Name Role Phone Unavailable Primary Care Provider [...]
--- OUTSIDE RECORDS SUMMARY | 2025-03-14 11:12 | XMS_ITS | Clinical Summary ---
Author Organization [facility] Address [address] [place] [address] Care Team Providers Care Steam Distribution Supervisor Name Role Phone None, Provider MD Primary [...] Comments Blood Pressure 131/89 05/10/2019 5:57 PM SHIP ERECTOR Pulse 78 05/10/2019 5:57 PM SHIP ERECTOR Temperature 36.2 C (97.2 F) 05/10/2019 5:57 PM SHIP ERECTOR Respiratory Rate 20 05/10/2019 5:57 PM SHIP ERECTOR Oxygen Saturation 97% 05/10/2019 5:57 PM SHIP ERECTOR Inhaled Oxygen Concentration - - Weight 63.5 kg (140 lb) 05/10/2019 5:57 PM SHIP ERECTOR Height 154.9 cm (5' 1) 05/10/2019 5:57 PM SHIP ERECTOR Body Mass Index 26.45 05/10/2019 5:57 PM SHIP ERECTOR Plan of Treatment Health Maintenance Due Date [...] to complete this topic Insurance Care Teams Steam Distribution Supervisor Relationship Specialty Start Date End Date None, Provider, PCP - General 02/07/19
--- NOTE | 2025-03-14 11:17 | ED.FEMALEGU ---
HPI - Female Genitourinary General Chief complaint: Urogenital-Female Stated complaint: possible UTI per pt. Time Seen by Provider: 03/14/25 10:39 Source: patient Mode of arrival: ambulatory Limitations: no limitations History of Present Illness HPI Narrative: this is a 29-year-old female 16 weeks presents with dysuria with some no diarrhea constipation no fever chills no nausea vomiting had symptoms for the last 3 to 4 days and also is concerned about STD exposure. There is no chest pain or shortness of breath mild right flank pain with palpation no hematuria. MD elicited complaint: dysuria Onset (ago): day(s) Severity: mild Female Urogenital Radiation: Suprapubic Related Data Home Medications ?Medication ?Instructions ?Recorded ?Confirmed ?Last Taken ?Type norethindrone (contraceptive) 0.35 0.35 mg PO DAILY 01/22/23 05/26/24 Unknown History mg tablet Allergies Allergy/AdvReac Type Severity Reaction Status Date / Time nickel Allergy rash, hives Verified 05/26/24 11:22 Review of Systems Review of Systems: All systems reviewed & are unremarkable except as noted in HPI and below PMFSH Past Medical History Medical History Chronic hypertension COVID-19 affecting in second trimester Hypokalemia UTI (urinary tract infection) Surgical History Surgical History History of placement of ear tubes History of appendectomy Previous section x1 Family History Family History Father Alcoholism Mother COPD (chronic obstructive pulmonary disease) Hypertension Depression Anxiety Grandparent Lymphoma Hypertension Anxiety Depression Cerebrovascular accident Social History Social History Smoking packs per day: 0.5 Smoking cigarettes per day: 10.0 Smoking status: Current every day smoker Tobacco type: cigarettes Second hand tobacco smoke exposure: Yes Alcohol intake: former Substance use: former Lack of Transportation: No Lack of Food: Never True Current Housing: I Have Housing Concerned About Future Housing: No Difficulty Paying Gas/Electric Bills: No Difficulty Paying for Meds: No Currently Unemployed: No Education: Grade School Difficulty w/ Childcare or Family Care: No Spiritual care concerns: No Exam Const: General: healthy appearing and no acute distress Nutritional Appearance: well nourished Orientation/consciousness: patient oriented x3 Limitations: no limitations Resp: Effort & Inspection: normal respiratory effort Auscultation: clear to auscultation bilaterally Cardio: Rate: regular rate Rhythm: regular rhythm GI: GI Palp: Yes Soft to palpation Auscultation: normal bowel sounds : Other: Suprapubic tenderness with palpation Skin: General skin exam: normal color Rashes: no rashes Neuro: General: patient oriented x3 and moves all extremities Extrem: General: normal to inspection, no clubbing, cyanosis or edema and no pedal edema Course Course Emergency Course: medical decision making narrative: The patient was evaluated by myself in the emergency department. History obtained from the patient was independent historian and physical exam was performed and witnessed by the nurse. External records were reviewed at this time. Patient had which she states is exposure to STD and a GNC performed and RPR and HIV. Patient was treated with 1g ceftriaxone IM and 1g p.o. azithromycin. Repeat examination assessment and: Patient doing well on repeat exam with no acute distress Repeat vitals are stable Patient agrees with discussion after shared medical decision-making and agrees with discharge. All questions answered to the patient's satisfaction. I Vital Signs Vital signs: Vital Signs Temperature 36.8 C 03/14/25 10:35 Pulse Rate 93 03/14/25 10:35 Respiratory Rate 16 03/14/25 10:35 Blood Pressure 114/87 03/14/25 10:35 Pulse Oximetry 100 03/14/25 10:35 Oxygen Delivery Room Air 03/14/25 10:35 Temperature 36.8 C 03/14/25 10:35 Pulse Rate 93 03/14/25 10:35 Respiratory Rate 16 03/14/25 10:35 Blood Pressure 114/87 03/14/25 10:35 Pulse Oximetry 100 03/14/25 10:35 Oxygen Delivery Room Air 03/14/25 10:35 MDM - Female Genitourinary Lab Data Labs: Lab Results 03/14/25 Range/Units 10:41 Urine Color Pending Urine Appearance Pending Urine pH Pending Ur Specific [place] Pending Urine Protein Pending Urine Glucose (UA) Pending Urine Ketones Pending Ur Blood (Man) Pending Urine Nitrate Pending Urine Bilirubin Pending Urine Urobilinogen Pending Leukocyte Esterase Rfl Pending CSF HIV-1 p24 Ag Scrn Pending C. trachomatis (PCR) Pending HIV 1&2 Antibody Rapid Pending N. gonorrhoeae (PCR) Pending Critical Care Time Critical Care Time Critical Care Time: No Discharge Plan Discharge Clinical Impression: STD exposure UTI in Qualifiers: Trimester: unspecified trimester Qualified Code(s): O23.40 - Unspecified infection of urinary tract in , unspecified trimester Patient Disposition: Home Condition: Stable Instructions: Antibiotic Form, Safe Sex Practices (ED), Urinary Tract Infection in (ED) Patient Language: Emirati Prescriptions: No Action gentamicin 0.3 % drops 2 drp EACH EYE Q4H Qty: 5 0RF acyclovir 400 mg tablet 400 mg PO TID Qty: 20 0RF amoxicillin-pot clavulanate 875-125 mg tablet 1 tablet PO Q12H Qty: 14 0RF norethindrone (contraceptive) 0.35 mg tablet 0.35 mg PO DAILY losartan-hydrochlorothiazide 50-12.5 mg tablet See Rx Instructions .ROUTE .COMPLEX Qty: 30 0RF Dose Instruction: TAKE 1 TABLET BY MOUTH EVERY DAY Rx Instructions: TAKE 1 TABLET BY MOUTH EVERY DAY Follow-up/Referrals: Kenny Palmer DO [Primary Care Provider, Family Practice]
[2025-03-14] MEDS: AZITHROMYCIN 250 MG TABLET 1000 MG PO (11:37)
[2025-03-14] MEDS: cefTRIAXone 1 GM, LIDOCAINE 1% LOCAL INJ 2.1 ML IM (11:38)
[2025-03-14 11:41] LABS: HIV 1 P24 AG Negative (Negative); HIV 1/2 AB Negative (Negative)
[2025-03-14 11:42] VITALS: BP 105/73; PULSE 91; RESP 17; TEMP 36.5; O2SAT 100
--- NOTE | 2025-03-14 12:21 | PC.NURSE ---
On 03/14/25, the student, [ janelle sharpe ], provided care and completed [facility] on this patient. I have reviewed the student's documentation and agree with the findings.
--- NOTE | 2025-03-16 13:11 | PC.NURSE ---
preliminary urine culture results: greater than 100,000 gram negative bacilli, per Dr. Danielson, to await final with c&s.
[2025-03-18 08:33] LABS: Syphilis IgG/IgM Antibody Non-Reactive (Nonreactive)
--- NOTE | 2025-03-18 14:24 | PC.NURSE ---
urine prelininary, abnormal, awaiting final
--- NOTE | 2025-03-19 12:24 | PC.NURSE ---
FINAL URINE CULTURE REPORT; ESCHERICHIA COLI; PATIENT DISCHARGED ON AMOXICILLIN, CULTURE SUSCEPTIBLE. NO FURTHER ACTION OR TREATMENT NEEDED PER ERP DR. RODAS
--- NOTE | 2025-03-21 13:20 | PC.NURSE ---
final urine culture reviewed. e.coli isolated. report shows sensitivity to amoxil. pt was prescribed amoxil at discharge. no change in plan of care.
== END 2025-03-14 12:01 | disposition home or self-care (01) ==
PROVIDERS: Emergency Provider Emergency Medicine; PCP Family Medicine
DX: O23.40 Unspecified infection of urinary tract in pregnancy, unspecified trimester (principal); I10 Essential (primary) hypertension; F17.210 Nicotine dependence, cigarettes, uncomplicated; Z11.3 Encounter for screening for infections with a predominantly sexual mode of transmission; Z20.2 Contact with and (suspected) exposure to infections with a predominantly sexual mode of transmission; Z3A.16 16 weeks gestation of pregnancy
CPT/HCPCS: 36415; 81001; 86593; 87077; 87086; 87186; 87491; 87591; 87806; 96372; 99284; A9270; J0696; J2003

== ENCOUNTER 2025-04-03 12:10 | Outpatient (CLI) | payer OTHER, BC, SELFPAY ==
--- NOTE | ~2025-04-03 | US_ITS ---
EXAM/PROCEDURE: US OB follow up HISTORY: N91.0 - Primary amenorrhea COMPARISON: None available. TECHNIQUE: Grayscale and M-mode FINDINGS: There are single live intrauterine gestation. The heart rate is 150 beats per second. Measurements obtained indicate an estimated gestational age of 20 weeks 1 day and earlier ultrasound from this gestation would provide more accurate dating. The estimated weight is 333 g. The placenta is anterior. anatomy was not performed on this study. IMPRESSION: Single live intrauterine gestation as described. No gross abnormalities are seen. anatomy was not performed on this study. Reviewed, dictated and finalized at location A. IMPRESSION: Single live intrauterine gestation as described. No gross abnormalities are see n. anatomy was not performed on this study.
--- OUTSIDE RECORDS SUMMARY | 2025-04-03 12:12 | XMS_ITS | Clinical Summary ---
Author Organization [facility] Address [address] [place] [address] Phone Care Team Providers Care Bottom Liner Name Role Phone Unavailable Primary Care Provider [...]
--- OUTSIDE RECORDS SUMMARY | 2025-04-03 12:12 | XMS_ITS | Patient Health Record ---
Author Organization [facility] Address [address] [place] [address] Care Team Providers Care Electrical Electronics Engineer Name Role Phone Keesha Berry Primary Care Provider Fritz Patiño Unavailable Allergies No Known Allergies Reason For Referral [...] with others, in a hotel, in a nursing home, living outside on the street, on a beach, or in a park) Are you worried about losing your housing? No What is the highest level of school that you have finished? 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 Stress is when someone feels tense, nervous, anxious, or can\t sleep at night because their mind is troubled Very much In the past year have you sp ent more than 2 nights in a row in a alf, group home, [place] [facility], or juvenile correctional facility? No Are [...] W/U Status Risk Notes Problem Tobacco user (175794637) Nicotine dependence, unspecified, uncomplicated (F17.200) Active confirmed Problem Physical examination, complete (40198531) Physical exam (Z00.00) Active confirmed Encounters Encounter Location Date Provider Diagnosis [address] [place] [address] 06/02/2024 Fritz Patiño Plan Of Treatment No Information Insurance Providers Payer Name Payer Address Payer Phone Subscriber Number Group Number Insured Name Patient Relationship to Insured Coverage Start Date Coverage End Date [facility] Attn Claims Department [address] [facility] [place] [address] [id number] Danae Liu Self - patient is the insured 3 Medical (General) History Surgical History Surgery Date(Month/Year) Appendectomy 2013 C section x 2 Hospitalization History Reason Date(Month/Year) Child x2 See surgeries
--- OUTSIDE RECORDS SUMMARY | 2025-04-03 12:12 | XMS_ITS | Clinical Summary ---
Author Organization [facility] Address [address] [place] [address] Care Team Providers Care Program Coordinator For Residence Life Name Role Phone None, Provider MD Primary [...] Comments Blood Pressure 131/89 05/10/2019 5:57 PM PROFESSOR OF THEATRE Pulse 78 05/10/2019 5:57 PM PROFESSOR OF THEATRE Temperature 36.2 C (97.2 F) 05/10/2019 5:57 PM PROFESSOR OF THEATRE Respiratory Rate 20 05/10/2019 5:57 PM PROFESSOR OF THEATRE Oxygen Saturation 97% 05/10/2019 5:57 PM PROFESSOR OF THEATRE Inhaled Oxygen Concentration - - Weight 63.5 kg (140 lb) 05/10/2019 5:57 PM PROFESSOR OF THEATRE Height 154.9 cm (5' 1) 05/10/2019 5:57 PM PROFESSOR OF THEATRE Body Mass Index 26.45 05/10/2019 5:57 PM PROFESSOR OF THEATRE Plan of Treatment Health Maintenance Due Date [...] M series) 2023 COVID-19 Vaccine (1 - 2024-2 6 season) 2025 Influenza Adult (#1) 2025 Hepatitis A Vaccines Aged Out No long er eligible based on patient's age to complete this topic Meningococcal B Vaccine Aged Out No l onger eligible based on patient's age to complete this topic Meningococcal Vaccine Aged Out No daysi heber eligible based on patient's age to complete this topic RSV Immunizations Under 20 Months Aged Out No longer eligible based on patient's age to complete this topic Insurance Care Teams Program Coordinator For Residence Life Relationship Specialty Start Date End Date None, Provider, PCP - General 02/07/19
== END 2025-04-03 12:11 | disposition home or self-care (01) ==
LOC: ANHIMG 12:11
PROVIDERS: PCP Family Medicine; Visit Provider Obstetrics & Gynecology
DX: N91.0 Primary amenorrhea (principal)
CPT/HCPCS: 76816

== ENCOUNTER 2025-05-19 13:24 | Outpatient (CLI) | payer BC, OTHER, SELFPAY ==
--- NOTE | ~2025-05-19 | US_ITS ---
EXAM/PROCEDURE: US OB /maternal detail HISTORY: Z3A.18 - 18 weeks gestation of COMPARISON: April 03, 2025 TECHNIQUE: Anatomic survey and well-being FINDINGS: A single viable intrauterine gestation is identified with heart rate of 149 bpm Presentation: Vertex Placenta: Anterior with inferior tip of the placenta approximately 3.2 cm removed from the internal os. The cervix appears closed and adequate in length measuring approximately 4.8 cm. EFW 1035 g or 2 lbs. 5 oz. EFW percentile 63.1% EGA by dates and ultrasound 26 weeks 4 days and 27 weeks 0 days respectively EDC by dates and ultrasound August 21 and August [id number]. Growth ratios are within normal limits. Visualized portions of the intracranial contents, face, spine, four-chamber view of the heart, diaphragm, stomach, kidneys and urinary bladder as well as three- vessel cord insertion and extremities appear normal. IMPRESSION: Single viable intrauterine gestation with heart rate of 149 bpm and concordant dates. No gross anatomic anomaly identified. The inferior tip of the placenta is 3.2 cm removed from the internal os. Reviewed, dictated and finalized at location A. CH MANAGER IMPRESSION: Single viable intrauterine gestation with heart rate of 149 bpm and concordant dates. No gross anatomic anomaly identified. The inferior tip of th e placenta is 3.2 cm removed from the internal os.
[2025-05-19 14:34] LABS: Hematocrit 35.4 % (37.0-47.0); Hemoglobin 11.9 g/dL (12.0-15.0); Immature Granulocyte Percent A 4.8 % (0-0.5); Lymphocytes Absolute Auto 3.68 K/mm3 (0.9-3.2); Mean Corpuscular HGB Conc 33.6 g/dl (32-36); Mean Corpuscular Hemoglobin 30.5 pg (26-34); Mean Corpuscular Volume 90.8 fl (80-100); Nucleated Red Blood Cells Absolute Auto 0.000 K/mm3 (0.0-0.012); Nucleated Red Blood Cells Perc 0.0 % (0.0-0.2); Platelet Count Result 320 k/mm3 (150-375); Red Blood Count 3.90 M/mm3 (4.2-5.4); White Blood Count 27.2 K/mm3 (4.5-10.0)
[2025-05-19 15:29] LABS: HIV 1/2 Ab P24 Ag Result Negative (Negative)
--- OUTSIDE RECORDS SUMMARY | 2025-05-19 15:33 | XMS_ITS | Clinical Summary ---
Author Organization [facility] Address [address] [place] [address] Care Team Providers Care Quality Control Coordinator Name Role Phone None, Provider MD Primary [...] Comments Blood Pressure 131/89 05/10/2019 5:57 PM RAYON WINDER Pulse 78 05/10/2019 5:57 PM RAYON WINDER Temperature 36.2 C (97.2 F) 05/10/2019 5:57 PM RAYON WINDER Respiratory Rate 20 05/10/2019 5:57 PM RAYON WINDER Oxygen Saturation 97% 05/10/2019 5:57 PM RAYON WINDER Inhaled Oxygen Concentration - - Weight 63.5 kg (140 lb) 05/10/2019 5:57 PM RAYON WINDER Height 154.9 cm (5' 1) 05/10/2019 5:57 PM RAYON WINDER Body Mass Index 26.45 05/10/2019 5:57 PM RAYON WINDER Plan of Treatment Health Maintenance Due Date [...] to complete this topic Insurance Care Teams Quality Control Coordinator Relationship Specialty Start Date End Date None, Provider, PCP - General 02/07/19
--- OUTSIDE RECORDS SUMMARY | 2025-05-19 15:33 | XMS_ITS | Clinical Summary ---
Author Organization [facility] Address [address] [place] [address] Phone Care Team Providers Care Athletic Team Physician Name Role Phone Unavailable Primary Care Provider [...] 2017 HPV/Cotest (21-29) 2017 PAP SMEAR 2017 INFLUENZA VACCINE (#1) 2025 HPV VACCINES (No Doses Required) Completed Insurance MEDICAID
--- OUTSIDE RECORDS SUMMARY | 2025-05-19 15:33 | XMS_ITS | Patient Health Record ---
Author Organization [facility] Address [address] [place] [address] Phone [phone] Care Team Providers Care Putty And Caulking Supervisor Name Role Phone Keesha Berry Primary Care Provider [phone] Fritz Patiño Unavailable [phone] Allergies No Known Allergies Reason For Referral No Information Medications Medication SIG (Take, Route, Frequency, Duration) Notes Start Date End Date Diagnosis (ICD Code) Status LORazepam 1 MG Tablet 1 tablet at bedtime as needed Orally Twice a day Active Thiamine HCl 100 MG Tablet 1 tablet Orally Once a day; Duration: 30 day(s) Active Lisinopril 10 MG Tablet 1 tablet Orally Once a day; Duration: 30 day(s) Active Folic Acid 1 MG Tablet 1 tablet Orally Once a day; Duration: 30 day(s) Active Multivitamin - Tablet 1 tablet Orally Once a day; Duration: 30 day(s) Active Social History Tobacco Use: Social History Observation Description Date Details (start date - stop date) Current Smoker NA - NA Sex Observation Social History Observation Description Sex Observation Female Sexual Orientation Social History Observation Description Sexual Orientation Bisexual Gender Identity Social History Observation Description Gender Identity Female SDOH Assessments Date Tool Assessment Assessment LOINC Value Assessment Notes Goals Interventions 06/02/20 24 PRAPARE (LOINC: 70775-1) Total Score: 6 Date Completed/Upda shelia: 05/30/20 24 What is your current housing situation? 13276-3 I do not have housing (staying with others, in a hotel, in a chcf, living outside on the street, on a beach, or in a park) (NO05831-9) Are you worried about losing your housing? 58155-3 No (LA32-8) What is the highest level of school that you have finished? 68932-6 Less than a high school degree (OQ16387-4) What is your current work situation? 13361-6 full time work (JU53167-1) In the past year, have you o r any family members you live with been unable to get any of the following when it was really needed? Check all that apply 74656-5 I do not have problems meeting my needs Has lack of transportation k ept you from medical appointments, meetings, work or from getting things needed for daily living? 25789-8 No (LA32-8) How often do you see or talk to people that you care about and feel close to? (For example: talking to friends on the phone, visiting friends or family, going to rastafarian or club meetings) 92862-6 More than 5 times a week (WP26264-2) How stressed are you? Stress is when someone feels tense, nervous, anxious, or can\t sleep at night because their mind is troubled 51788-7 Very much (ON43821-8) In the past year have you sp ent more than 2 nights in a row in a fpc, residential, long-term center, or juvenile correctional facility? 95881-1 No (LA32-8) Do you feel physically and emotionally safe where you currently live? 82531-7 Yes (LA33-6) In the past year, have you b een afraid of your partner or ex-partner? 08883-8 No (LA32-8) Are you a refugee? No What country are you from? [place] [facility] PRAPARE Score: 6 Social History Social Determinants Social Info Question Answer Notes PRAPARE Date Completed/Updated: 05/30/2024 What is your current housing situation? I do not have housing (staying with others, in a hotel, in a chcf, living outside on the street, on a beach, or in a park) Are you worried about losing your housing? No What is the highest level of school that you have finished? 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 Stress is when someone feels tense, nervous, anxious, or can\t sleep at night because their mind is troubled Very much In the past year have you sp ent more than 2 nights in a row in a fpc, residential, long-term center, or juvenile correctional facility? No Are you a refugee? No What country are you from? [place] Do you feel physically and e motionally safe where you currently live? Yes In the past year, have you b een afraid of your partner or ex-partner? No PRAPARE Score: 6 Miscellaneous Social Info Question Answer Notes Method of learning: Preferred method of learning: Reading,Demonstration Primary Social History Social Info Question Answer Notes Living Arrangement Living Arrangement: Homeless Tobacco Use - do not use Tobacco Use: Status Reviewed with Patient Employment Status Employment Status: Unemployed Illicit Substance Usage Illicit Substance Usage: Yes Interested in quitting: Yes Substance Used: Methamphetamine Alcohol Use Alcohol Use Frequency: Never Tobacco Use: Social Info Question Answer Notes Dont use, Tobacco Use/Smoking Are you a current fallon ry day smoker Problems Problem Type SNOMED Code ICD Code Dates Problem Status W/U Status Risk Notes Problem Tobacco user (474109791) Nicotine dependence, unspecified, uncomplicated (F17.200) Added On:2022 Active confirmed Problem Physical examination, complete (56986483) Physical exam (Z00.00) Added On:2022 Active confirmed Encounters Date Time Type Facility Location Provider Diagnosis 10:18 AM Telephone Encounter [address] [place] [address] Fritz Patiño Plan Of Treatment No Information Insurance Providers Payer Name Payer Address Payer Phone Subscriber Number Group Number Insured Name Patient Relationship to Insured Coverage Start Date Coverage End Date [facility] Attn Claims Department [address] [place] [address] [id number] Danae Lui Self - patient is the insured 3 Medical (General) History Surgical History Surgery Date(Month/Year) Appendectomy 2013 C section x 2 Hospitalization History Reason Date(Month/Year) Child x2 See surgeries
[2025-05-19 16:01] LABS: Syphilis IgG/IgM Antibody Non-Reactive (Nonreactive)
[2025-05-19 16:05] LABS: Hepatitis B Surface Antigen Negative (Negative)
[2025-05-20 06:07] LABS: Cytomegalovirus (CMV) Ab, IgG <0.60 U/mL (0.00-0.59); Varicella-Zoster Ab, IgG Reactive (Non Reactive)
[2025-05-22 15:09] LABS: Parvovirus B19, IgG 5.8 index (0.0-0.8); Parvovirus B19, IgM 0.1 index (0.0-0.8)
== END 2025-05-19 13:25 | disposition home or self-care (01) ==
PROVIDERS: PCP Family Medicine; Visit Provider Obstetrics & Gynecology
DX: Z34.90 Encounter for supervision of normal pregnancy, unspecified, unspecified trimester (principal); Z3A.18 18 weeks gestation of pregnancy
CPT/HCPCS: 36415; 76805; 84702; 85025; 86593; 86644; 86703; 86747; 86762; 86787; 86850; 86900; 86901; 87077; 87086; 87186; 87340; G0432